=== PATIENT | female | born 1975 | race Caucasian/White ===

== ENCOUNTER 2018-10-21 15:38 | Emergency (ER) | payer MEDICAID ==
[~2018-10-21] VITALS: Ht 154.9 cm; Wt 100.0 kg
[~2018-10-21 15:38] MED LIST: ALBU8.5H8 IH; AMLO10TA4 PO; AMLO5TAB16 PO; ASPI-1265 PO; ATOR20TA66 PO; CLON-529 PO; CLOP75TA35 PO; FLO110IN INH; GUAI600T45 PO; HYDR-4069 PO; HYDR-4070 PO; METF1000 PO; METO-395 PO; METO25TA6 PO
[2018-10-21 15:52] VITALS: BP 209/128
== END 2018-10-21 18:25 | disposition home or self-care (01) ==
LOC: ER 15:39
DX: S00.83XA Contusion of other part of head, initial encounter (principal); I10 Essential (primary) hypertension; I25.10 Atherosclerotic heart disease of native coronary artery without angina pectoris; E78.00 Pure hypercholesterolemia, unspecified; I25.2 Old myocardial infarction; J44.9 Chronic obstructive pulmonary disease, unspecified; E11.9 Type 2 diabetes mellitus without complications; F12.90 Cannabis use, unspecified, uncomplicated; F15.90 Other stimulant use, unspecified, uncomplicated; Z79.82 Long term (current) use of aspirin; Z98.890 Other specified postprocedural states; Z79.899 Other long term (current) drug therapy; W18.39XA Other fall on same level, initial encounter; Y93.89 Activity, other specified; Y92.89 Other specified places as the place of occurrence of the external cause; Y99.8 Other external cause status
CPT/HCPCS: 70450; 99284

== ENCOUNTER 2018-12-21 15:39 | Emergency (ER) | payer MEDICAID ==
[~2018-12-21] VITALS: Ht 154.9 cm; Wt 106.0 kg
[2018-12-21 16:22] VITALS: BP 170/115
[2018-12-21] MEDS ORDERED: diphenhydrAMINE 25mg capsule PO ONE (17:05)
[2018-12-21] MEDS ORDERED: PERM60CR19 TP (17:06)
[2018-12-21] MEDS ORDERED: HYDR28CR14 TOP (17:06)
== END 2018-12-21 17:26 | disposition home or self-care (01) ==
LOC: ER 15:40
DX: L23.9 Allergic contact dermatitis, unspecified cause (principal); I25.10 Atherosclerotic heart disease of native coronary artery without angina pectoris; E78.00 Pure hypercholesterolemia, unspecified; I10 Essential (primary) hypertension; I25.2 Old myocardial infarction; J44.9 Chronic obstructive pulmonary disease, unspecified; E11.9 Type 2 diabetes mellitus without complications; F12.90 Cannabis use, unspecified, uncomplicated; F15.90 Other stimulant use, unspecified, uncomplicated; Z20.7 Contact with and (suspected) exposure to pediculosis, acariasis and other infestations; Z98.890 Other specified postprocedural states; Z79.82 Long term (current) use of aspirin; Z79.84 Long term (current) use of oral hypoglycemic drugs; Z79.899 Other long term (current) drug therapy
CPT/HCPCS: 99283; Q0163

== ENCOUNTER 2024-06-10 11:56 | Emergency (ER) | payer MEDICAID ==
[~2024-06-10] VITALS: Ht 157.5 cm; Wt 104.8 kg
[~2024-06-10 11:56] MED LIST changes: +ALBU8.5H17 IH; -ALBU8.5H8 IH; +CLOP75TA34 PO; -CLOP75TA35 PO; -HYDR-4069 PO; -HYDR-4070 PO; +HYDR25TA90 PO; +HYDR28CR14 TOP; +HYDR50TA46 PO; +LOP25T PO; -METO25TA6 PO
[2024-06-10 13:11] LABS: BASOPHILS # (AUTO) 0.1 X10'3 (0-0.2); EOSINOPHILS # (AUTO) 0.3 X10'3 (0-0.9); EOSINOPHILS % (AUTO) 2.7 % (0-6); HEMATOCRIT 47.7 % (35.0-45.0); HEMOGLOBIN 15.8 g/dl (12.0-16.0); LYMPHOCYTES # (AUTO) 1.9 X10'3 (1.1-4.8); LYMPHOCYTES % (AUTO) 15.9 % (21-51); MEAN CORPUSCULAR HEMOGLOBIN 27.6 PG (27.0-31.0); MEAN CORPUSCULAR HGB CONC 33.1 g/dL (33.0-36.5); MEAN CORPUSCULAR VOLUME 83.4 FL (78-98); MONOCYTES # (AUTO) 0.7 X10'3 (0-0.9); MONOCYTES % (AUTO) 5.9 % (2-12); NEUTROPHILS # (AUTO) 9.1 X10'3 (1.8-7.7); NEUTROPHILS % (AUTO) 74.5 % (42-75); PLATELET COUNT 417 X10'3 (140-440); RED BLOOD COUNT 5.72 X10'6 (4.20-5.60); RED CELL DISTRIBUTION WIDTH 14.9 % (11.5-14.5); WHITE BLOOD COUNT 12.2 X10'3 (4.5-11.0)
[2024-06-10 13:42] LABS: ALANINE AMINOTRANSFERASE 21 U/L (12-78); ALBUMIN 2.9 G/DL (3.4-5.0); ALBUMIN/GLOBULIN RATIO 0.6 (1.1-1.5); ALKALINE PHOSPHATASE 116 IU/L (46-116); ANION GAP 10 (8-16); ASPARTATE AMINO TRANSFERASE 7 U/L (10-37); BILIRUBIN,TOTAL 0.3 MG/DL (0.1-1.0); BLOOD UREA NITROGEN 32 MG/DL (7-18); BUN/CREATININE RATIO 16.4 (10.0-20.0); CALCIUM 8.9 MG/DL (8.5-10.1); CHLORIDE 101 MMOL/L (99-107); CREATININE 1.95 MG/DL (0.40-0.90); GLUCOSE 288 MG/DL (70-104); POTASSIUM 4.8 MMOL/L (3.5-5.1); SODIUM 135 MMOL/L (135-145); TOTAL CARBON DIOXIDE 24.1 MMOL/L (24-32); TOTAL PROTEIN 8.1 G/DL (6.4-8.2); eCRCL 28 ML/MIN; eGFR 27 ML/MIN
[2024-06-10 13:55] LABS: PRO BRAIN NATRIURETIC PEPTIDE 2377 PG/ML (0-125)
[2024-06-10 14:16] LABS: LIPASE > 375 U/L (16-77)
[2024-06-10 14:24] LABS: BILIRUBIN,URINE NEGATIVE (Neg); CLARITY,URINE SLIGHTLY CLOUDY (Clear); COLOR,URINE YELLOW (Yellow); GLUCOSE, URINE 250 mg/dl (Neg); KETONES,URINE NEGATIVE (Neg); LEUKOCYTE ESTERASE ,URINE NEGATIVE (Neg); NITRITES, URINE NEGATIVE (Neg); OCCULT BLOOD,URINE TRACE-INTACT (Neg); PROTEIN,URINE >=300 mg/dl (Neg); UROBILINOGEN,URINE 0.2 E.U/dL (0.2-1.0)
[2024-06-10 14:26] LABS: URINE HCG NEGATIVE (NEG)
[2024-06-10] MEDS: cloNIDine 0.1 mg tablet PO ONE ×2 (14:27→17:30)
[2024-06-10 14:29] LABS: UA COLLECTION TYPE CLN CATCH MIDSTREAM
[2024-06-10 14:31] LABS: BACTERIA,URINE 1+ /HPF (Neg); FINE GRANULAR CAST 0-3 /LPF (NEGATIVE); HYALINE CASTS 0-3 /LPF (NEGATIVE); RBC,URINE 0-2 /HPF (0-2); SQUAMOUS EPITHELIAL CELL,UR MODERATE /LPF (FEW); WBC,URINE 20-30 /HPF (0-4)
[2024-06-10 14:32] LABS: WBC CLUMPS,URINE FEW /HPF (NEGATIVE)
[2024-06-10] MEDS ORDERED: CEPH-585 PO (16:36)
[2024-06-10] MEDS ORDERED: METF-438 PO (16:45)
[2024-06-10] MEDS ORDERED: LOSA-418 PO (16:45)
[2024-06-10] MEDS: cephalexin 250mg capsule PO ONE (17:30)
[2024-06-10 17:32] VITALS: PULSE 83
[2024-06-10] MEDS: losartan 50mg tablet PO ONE (17:32)
[2024-06-10 17:37] VITALS: BP 191/113; RESP 17; TEMP 97.9; O2SAT 94
== END 2024-06-10 17:44 | disposition home or self-care (01) ==
LOC: ER 11:57
DX: I16.0 Hypertensive urgency (principal); N39.0 Urinary tract infection, site not specified; Z91.199 Patient's noncompliance with other medical treatment and regimen due to unspecified reason; E11.9 Type 2 diabetes mellitus without complications; E78.00 Pure hypercholesterolemia, unspecified; I10 Essential (primary) hypertension; I25.10 Atherosclerotic heart disease of native coronary artery without angina pectoris; J44.9 Chronic obstructive pulmonary disease, unspecified; F12.90 Cannabis use, unspecified, uncomplicated; F15.90 Other stimulant use, unspecified, uncomplicated; Z79.82 Long term (current) use of aspirin
CPT/HCPCS: 36415; 71045; 76700; 80053; 81001; 81025; 83690; 83880; 84484; 85025; 87088; 93005; 99285

== ENCOUNTER 2024-09-02 11:42 | Inpatient (IN) | payer MEDICAID ==
[~2024-09-02] VITALS: Ht 154.9 cm; Wt 110.1 kg
[~2024-09-02 11:42] MED LIST changes: +AMLO-912 PO; -AMLO10TA4 PO; +CEPH-585 PO; +LOSA-418 PO; +METF-438 PO
[2024-09-02 12:39] LABS: ALANINE AMINOTRANSFERASE 14 U/L (12-78); ALBUMIN 2.8 G/DL (3.4-5.0); ALBUMIN/GLOBULIN RATIO 0.5 (1.1-1.5); ALKALINE PHOSPHATASE 127 IU/L (46-116); ANION GAP 7 (8-16); ASPARTATE AMINO TRANSFERASE 15 U/L (10-37); BILIRUBIN,TOTAL 0.3 MG/DL (0.1-1.0); BLOOD UREA NITROGEN 37 MG/DL (7-18); BUN/CREATININE RATIO 18.4 (10.0-20.0); CALCIUM 8.9 MG/DL (8.5-10.1); CHLORIDE 103 MMOL/L (99-107); CREATININE 2.01 MG/DL (0.40-0.90); GLUCOSE 254 MG/DL (70-104); SODIUM 134 MMOL/L (135-145); TOTAL CARBON DIOXIDE 23.6 MMOL/L (24-32); TOTAL PROTEIN 8.1 G/DL (6.4-8.2); eCRCL 26 ML/MIN; eGFR 26 ML/MIN
[2024-09-02 12:47] LABS: POTASSIUM 4.7 MMOL/L (3.5-5.1); PRO BRAIN NATRIURETIC PEPTIDE 2041 PG/ML (0-125)
[2024-09-02] MEDS: hydrALAZINE 20mg/ml inj. IV ONE (12:49)
[2024-09-02 13:18] LABS: BASOPHILS # (AUTO) 0.2 X10'3 (0-0.2); BASOPHILS % (AUTO) 1.4 % (0-1); EOSINOPHILS # (AUTO) 0.4 X10'3 (0-0.9); EOSINOPHILS % (AUTO) 3.2 % (0-6); HEMATOCRIT 44.4 % (35.0-45.0); HEMOGLOBIN 14.5 g/dl (12.0-16.0); LYMPHOCYTES # (AUTO) 2.3 X10'3 (1.1-4.8); MEAN CORPUSCULAR HEMOGLOBIN 27.8 PG (27.0-31.0); MEAN CORPUSCULAR HGB CONC 32.6 g/dL (33.0-36.5); MEAN CORPUSCULAR VOLUME 85.2 FL (78-98); MEAN PLATELET VOLUME 6.9 FL (7.4-10.4); MONOCYTES % (AUTO) 7.4 % (2-12); NEUTROPHILS # (AUTO) 9.6 X10'3 (1.8-7.7); PLATELET COUNT 427 X10'3 (140-440); RED BLOOD COUNT 5.22 X10'6 (4.20-5.60); RED CELL DISTRIBUTION WIDTH 14.3 % (11.5-14.5); WHITE BLOOD COUNT 13.5 X10'3 (4.5-11.0)
[2024-09-02] MEDS: nitroGLYCERIN-Tridil 50MG/D5W 250 ML IV SCH (13:20)
[2024-09-02] MEDS ORDERED: magnesium sulf-water 4G/100mL 100 ML IV PRN (13:35)
[2024-09-02] MEDS ORDERED: magnesium sulf-water 2g/50mL 50 ML IV PRN (13:35)
[2024-09-02] MEDS ORDERED: potassium Cl 20 mEq SR tablet PO PRN ×2 (13:35)
[2024-09-02] MEDS ORDERED: potassium Cl 40MEQ/1/2NS 520ml 520 ML IV PRN (13:35)
[2024-09-02] MEDS ORDERED: ondansetron/PF 4mg/2ml inj IV PRN (13:35)
[2024-09-02] MEDS ORDERED: HYDROcodone/acetaminophen 5mg/325mg tablet PO PRN (13:35)
[2024-09-02] MEDS ORDERED: magnesium Cl slow-release 64mg tablet PO PRN (13:35)
[2024-09-02] MEDS ORDERED: acetaminophen 325mg tablet PO PRN (13:35)
[2024-09-02] MEDS ORDERED: morphine 2 MG/ML inj. syringe IV PRN (13:35)
[2024-09-02] MEDS: aspirin 325mg tablet, delayed-release (Ecotrin) PO ONE (14:07)
[2024-09-02] MEDS: normal saline 1000ml 1,000 ML IV SCH (14:07)
[2024-09-02] MEDS: niCARDipine-NS 40mg/200ml IVPB 200 ML IV SCH (14:08)
[2024-09-02] MEDS: labetalol 20mg/4ml (5mg/ml) syringe IV ONE (14:09)
[2024-09-02 16:02] LABS: URINE AMPHETAMINE SCREEN NEGATIVE (Neg); URINE BARBITUATE SCREEN NEGATIVE (Neg); URINE BENZODIAZEPINES SCREEN NEGATIVE (Neg); URINE COCAINE SCREEN NEGATIVE (Neg); URINE METHADONE SCREEN NEGATIVE (Neg)
[2024-09-02 16:03] LABS: URINE CANNABINOID SCREEN POSITIVE (Neg); URINE OPIATE SCREEN NEGATIVE (Neg); URINE PHENCYCLIDINE SCREEN NEGATIVE (Neg)
[2024-09-02] MEDS: acetaminophen 325mg tablet PO PRN (16:54)
[2024-09-02] MEDS: hyDRALAzine 10mg tablet PO SCH (17:20)
[2024-09-02] MEDS: losartan 50mg tablet PO SCH (17:20)
[2024-09-02 20:30] VITALS: BP 153/111; PULSE 89; RESP 20; TEMP 97.1; O2SAT 95
[2024-09-02] MEDS ORDERED: DEXTROSE 15 GM of carb/4 tabs (each vial/BOTTLE has 4 tablets) PO PRN ×2 (21:05)
[2024-09-02] MEDS ORDERED: dextrose 50%-water 50ml dispensing syringe IV PRN ×2 (21:05)
[2024-09-02] MEDS ORDERED: glucagon, human recombinant 1mg kit SUBCUT PRN (21:05)
[2024-09-02 21:29] LABS: HEMOGLOBIN A1C 9.2 % (4.5-6.2)
[2024-09-02 22:00] VITALS: BP 147/93; PULSE 91; RESP 19; TEMP 97; O2SAT 94
[2024-09-02] MEDS: heparin, porcine 5000 units/ml vial SQ SCH (23:02)
[2024-09-02] MEDS: INSULIN LISPRO 100 UNIT/ML INSULN.PEN MULTI-DOSE SQ SCH (23:07)
[2024-09-02] MEDS: insulin glargine (Lantus) pen - multi-dose SQ SCH (23:08)
[2024-09-02] MEDS: insulin Lispro (HumaLOG) vial - multi-dose SQ ONE (23:23)
[2024-09-02] MEDS: insulin glargine (Lantus) pen - multi-dose SQ ONE (23:24)
[2024-09-03] VITALS (8 sets, daily range): BP systolic 143–180; BP diastolic 83–115; PULSE 82–94; RESP 11–20; TEMP 97.2–98.6; O2SAT 92–97
[2024-09-03 06:39] LABS: BASOPHILS # (AUTO) 0.1 X10'3 (0-0.2); BASOPHILS % (AUTO) 1.1 % (0-1); EOSINOPHILS # (AUTO) 0.4 X10'3 (0-0.9); EOSINOPHILS % (AUTO) 3.2 % (0-6); HEMOGLOBIN 13.9 g/dl (12.0-16.0); LYMPHOCYTES # (AUTO) 1.9 X10'3 (1.1-4.8); LYMPHOCYTES % (AUTO) 14.1 % (21-51); MEAN CORPUSCULAR HEMOGLOBIN 27.8 PG (27.0-31.0); MEAN CORPUSCULAR HGB CONC 33.1 g/dL (33.0-36.5); MEAN CORPUSCULAR VOLUME 84.1 FL (78-98); MEAN PLATELET VOLUME 6.8 FL (7.4-10.4); MONOCYTES # (AUTO) 1.1 X10'3 (0-0.9); MONOCYTES % (AUTO) 7.9 % (2-12); NEUTROPHILS # (AUTO) 9.8 X10'3 (1.8-7.7); NEUTROPHILS % (AUTO) 73.7 % (42-75); PLATELET COUNT 388 X10'3 (140-440); RED CELL DISTRIBUTION WIDTH 14.3 % (11.5-14.5); WHITE BLOOD COUNT 13.3 X10'3 (4.5-11.0)
[2024-09-03 07:00] LABS: ALANINE AMINOTRANSFERASE 12 U/L (12-78); ALBUMIN 2.6 G/DL (3.4-5.0); ALBUMIN/GLOBULIN RATIO 0.5 (1.1-1.5); ALKALINE PHOSPHATASE 116 IU/L (46-116); ANION GAP 11 (8-16); BILIRUBIN,TOTAL 0.3 MG/DL (0.1-1.0); BLOOD UREA NITROGEN 34 MG/DL (7-18); BUN/CREATININE RATIO 18.9 (10.0-20.0); CALCIUM 8.7 MG/DL (8.5-10.1); CHLORIDE 102 MMOL/L (99-107); GLUCOSE 274 MG/DL (70-104); POTASSIUM 4.2 MMOL/L (3.5-5.1); SODIUM 133 MMOL/L (135-145); TOTAL PROTEIN 7.4 G/DL (6.4-8.2); eCRCL 29 ML/MIN; eGFR 30 ML/MIN
[2024-09-03] MEDS ORDERED: INSULIN LISPRO 100 UNIT/ML INSULN.PEN MULTI-DOSE SQ SCH (07:00)
[2024-09-03 07:24] LABS: ASPARTATE AMINO TRANSFERASE 6 U/L (10-37)
[2024-09-03] MEDS: labetalol 100mg tablet PO SCH (10:05)
[2024-09-03] MEDS ORDERED: GABA-1405 PO (14:33)
[2024-09-03] MEDS ORDERED: CARSR60C PO (14:33)
[2024-09-03] MEDS ORDERED: ROSU40TA89 PO (14:33)
[2024-09-03] MEDS ORDERED: SPIR50TA5 PO (14:33)
[2024-09-03] MEDS ORDERED: insulin glargine (Lantus) pen - multi-dose SQ SCH (21:00)
[2024-09-03] MEDS: amLODIPine 5mg tablet PO SCH (22:45)
[2024-09-04 02:00] VITALS: BP 116/77; PULSE 75; RESP 16; TEMP 97.6; O2SAT 94
[2024-09-04 06:40] LABS: BASOPHILS # (AUTO) 0.1 X10'3 (0-0.2); BASOPHILS % (AUTO) 1.3 % (0-1); EOSINOPHILS # (AUTO) 0.3 X10'3 (0-0.9); EOSINOPHILS % (AUTO) 2.6 % (0-6); HEMATOCRIT 41.6 % (35.0-45.0); HEMOGLOBIN 13.5 g/dl (12.0-16.0); LYMPHOCYTES # (AUTO) 2.1 X10'3 (1.1-4.8); LYMPHOCYTES % (AUTO) 18.2 % (21-51); MEAN CORPUSCULAR HEMOGLOBIN 27.6 PG (27.0-31.0); MEAN CORPUSCULAR HGB CONC 32.4 g/dL (33.0-36.5); MEAN CORPUSCULAR VOLUME 85.4 FL (78-98); MONOCYTES % (AUTO) 8.4 % (2-12); NEUTROPHILS # (AUTO) 8.2 X10'3 (1.8-7.7); NEUTROPHILS % (AUTO) 69.5 % (42-75); PLATELET COUNT 370 X10'3 (140-440); RED BLOOD COUNT 4.87 X10'6 (4.20-5.60); RED CELL DISTRIBUTION WIDTH 14.5 % (11.5-14.5); WHITE BLOOD COUNT 11.8 X10'3 (4.5-11.0)
[2024-09-04 06:59] LABS: ALANINE AMINOTRANSFERASE 15 U/L (12-78); ALBUMIN 2.4 G/DL (3.4-5.0); ALBUMIN/GLOBULIN RATIO 0.6 (1.1-1.5); ALKALINE PHOSPHATASE 100 IU/L (46-116); ANION GAP 8 (8-16); ASPARTATE AMINO TRANSFERASE 12 U/L (10-37); BILIRUBIN,TOTAL 0.4 MG/DL (0.1-1.0); BLOOD UREA NITROGEN 29 MG/DL (7-18); CALCIUM 8.4 MG/DL (8.5-10.1); CHLORIDE 104 MMOL/L (99-107); CREATININE 1.71 MG/DL (0.40-0.90); GLUCOSE 202 MG/DL (70-104); POTASSIUM 4.3 MMOL/L (3.5-5.1); SODIUM 135 MMOL/L (135-145); TOTAL CARBON DIOXIDE 23.2 MMOL/L (24-32); TOTAL PROTEIN 6.7 G/DL (6.4-8.2); eCRCL 30 ML/MIN; eGFR 32 ML/MIN
[2024-09-04 08:00] VITALS: BP 142/85; PULSE 81; RESP 14; TEMP 97.1; O2SAT 97
[2024-09-04 12:00] VITALS: BP 144/76; PULSE 73; RESP 18; TEMP 97.3; O2SAT 95
[2024-09-04] MEDS ORDERED: hyDRALAzine tablet PO (13:35)
[2024-09-04] MEDS ORDERED: LOSA50TA64 PO (13:35)
[2024-09-04] MEDS ORDERED: NOR5T PO (13:35)
[2024-09-04] MEDS ORDERED: ROSU40TA89 PO (13:35)
[2024-09-04] MEDS ORDERED: CARSR60C PO (13:35)
[2024-09-04] MEDS ORDERED: LABE100T8 PO (13:35)
[2024-09-04 16:05] VITALS: BP 172/77; PULSE 78; RESP 18; TEMP 97.3; O2SAT 95
== END 2024-09-04 16:20 | disposition home or self-care (01) | DRG 199 ==
LOC: ER 11:42 → ED HOLD 13:36 → PCU 3S 20:15
PROVIDERS: ADMIT Internal Medicine; ATTEND Internal Medicine
DX: I16.0 Hypertensive urgency (principal); N17.9 Acute kidney failure, unspecified; E11.22 Type 2 diabetes mellitus with diabetic chronic kidney disease; D72.829 Elevated white blood cell count, unspecified; I12.9 Hypertensive chronic kidney disease with stage 1 through stage 4 chronic kidney disease, or unspecified chronic kidney disease; E78.00 Pure hypercholesterolemia, unspecified; N18.30 Chronic kidney disease, stage 3 unspecified; I25.10 Atherosclerotic heart disease of native coronary artery without angina pectoris; J44.89 Other specified chronic obstructive pulmonary disease; I25.2 Old myocardial infarction; Z79.84 Long term (current) use of oral hypoglycemic drugs; Z79.899 Other long term (current) drug therapy; Z82.49 Family history of ischemic heart disease and other diseases of the circulatory system; Z82.5 Family history of asthma and other chronic lower respiratory diseases; Z83.3 Family history of diabetes mellitus; Z91.148 Patient's other noncompliance with medication regimen for other reason; Z98.891 History of uterine scar from previous surgery
CPT/HCPCS: 36415; 71045; 80053; 80305; 82948; 83036; 83880; 84484; 85025; 87081; 93005; 93306; 96361; 96374; 96375; 99285; A6258; G0378; J0360; J1644; J1815; J3490; J7030

== ENCOUNTER 2024-09-20 02:12 | Emergency (ER) | payer MEDICAID ==
[~2024-09-20] VITALS: Ht 157.5 cm; Wt 113.8 kg
[~2024-09-20 02:12] MED LIST changes: -AMLO-912 PO; -AMLO5TAB16 PO; -ASPI-1265 PO; -ATOR20TA66 PO; +CARSR60C PO; -CEPH-585 PO; -CLON-529 PO; -CLOP75TA34 PO; -FLO110IN INH; +GABA-1405 PO; -GUAI600T45 PO; -HYDR25TA90 PO; -HYDR28CR14 TOP; -HYDR50TA46 PO; +LABE100T8 PO; -LOP25T PO; -LOSA-418 PO; +LOSA50TA64 PO; -METO-395 PO; +NOR5T PO; +ROSU40TA89 PO; +hyDRALAzine tablet PO
[2024-09-20 02:20] VITALS: BP 169/84; PULSE 79; TEMP 98.3; O2SAT 97
[2024-09-20 02:42] LABS: URINE HCG NEGATIVE (NEG)
[2024-09-20 02:48] LABS: BASOPHILS # (AUTO) 0.1 X10'3 (0-0.2); BASOPHILS % (AUTO) 0.8 % (0-1); EOSINOPHILS # (AUTO) 0.4 X10'3 (0-0.9); EOSINOPHILS % (AUTO) 2.7 % (0-6); HEMATOCRIT 36.7 % (35.0-45.0); HEMOGLOBIN 12.2 g/dl (12.0-16.0); LYMPHOCYTES # (AUTO) 1.9 X10'3 (1.1-4.8); LYMPHOCYTES % (AUTO) 13.4 % (21-51); MEAN CORPUSCULAR HEMOGLOBIN 27.4 PG (27.0-31.0); MEAN CORPUSCULAR HGB CONC 33.2 g/dL (33.0-36.5); MEAN CORPUSCULAR VOLUME 82.6 FL (78-98); MEAN PLATELET VOLUME 6.9 FL (7.4-10.4); MONOCYTES # (AUTO) 1.2 X10'3 (0-0.9); MONOCYTES % (AUTO) 8.2 % (2-12); NEUTROPHILS # (AUTO) 10.6 X10'3 (1.8-7.7); NEUTROPHILS % (AUTO) 74.9 % (42-75); PLATELET COUNT 363 X10'3 (140-440); RED BLOOD COUNT 4.44 X10'6 (4.20-5.60); RED CELL DISTRIBUTION WIDTH 13.7 % (11.5-14.5); WHITE BLOOD COUNT 14.1 X10'3 (4.5-11.0)
[2024-09-20 02:58] LABS: ALANINE AMINOTRANSFERASE 13 U/L (12-78); ALBUMIN/GLOBULIN RATIO 0.7 (1.1-1.5); ALKALINE PHOSPHATASE 108 IU/L (46-116); ANION GAP 10 (8-16); ASPARTATE AMINO TRANSFERASE 10 U/L (10-37); BILIRUBIN,TOTAL 0.3 MG/DL (0.1-1.0); BLOOD UREA NITROGEN 45 MG/DL (7-18); CALCIUM 8.1 MG/DL (8.5-10.1); CHLORIDE 105 MMOL/L (99-107); GLUCOSE 217 MG/DL (70-104); LIPASE 50 U/L (16-77); POTASSIUM 4.8 MMOL/L (3.5-5.1); SODIUM 138 MMOL/L (135-145); TOTAL CARBON DIOXIDE 22.8 MMOL/L (24-32); TOTAL PROTEIN 7.6 G/DL (6.4-8.2); eCRCL 22 ML/MIN; eGFR 21 ML/MIN
[2024-09-20 03:00] LABS: BILIRUBIN,URINE NEGATIVE (Neg); CLARITY,URINE CLEAR (Clear); COLOR,URINE YELLOW (Yellow); GLUCOSE, URINE 250 mg/dl (Neg); KETONES,URINE NEGATIVE (Neg); LEUKOCYTE ESTERASE ,URINE TRACE (Neg); OCCULT BLOOD,URINE TRACE-INTACT (Neg); PROTEIN,URINE 100 mg/dl (Neg); UROBILINOGEN,URINE 0.2 E.U/dL (0.2-1.0)
[2024-09-20 03:09] LABS: UA COLLECTION TYPE CLN CATCH MIDSTREAM
[2024-09-20 03:10] LABS: NITRITES, URINE NEGATIVE (Neg)
[2024-09-20 03:11] LABS: BACTERIA,URINE 2+ /HPF (Neg); RBC,URINE 0-2 /HPF (0-2); SQUAMOUS EPITHELIAL CELL,UR FEW /LPF (FEW)
[2024-09-20] MEDS: HYDROcodone/acetaminophen 5mg/325mg tablet PO ONE (03:22)
[2024-09-20] MEDS: ondansetron 4mg rapidly disintigrating tab PO ONE (03:23)
[2024-09-20] MEDS: proCHLORperazine 10 MG/2 ml inj IV ONE (04:26)
[2024-09-20] MEDS: proCHLORperazine 10 MG/2 ml inj IM ONE (04:27)
[2024-09-20] MEDS ORDERED: HYDR-3965 PO (04:32)
[2024-09-20] MEDS ORDERED: ONDA-245 PO (04:32)
[2024-09-20 04:40] VITALS: RESP 14
[2024-09-20] MEDS: HYDROcodone/acetaminophen 10/325mg tab PO ONE (04:40)
== END 2024-09-20 04:52 | disposition home or self-care (01) ==
LOC: ER 02:12
DX: M54.50 Low back pain, unspecified (principal); R11.2 Nausea with vomiting, unspecified; E11.9 Type 2 diabetes mellitus without complications; E78.00 Pure hypercholesterolemia, unspecified; I10 Essential (primary) hypertension; I25.10 Atherosclerotic heart disease of native coronary artery without angina pectoris; J44.9 Chronic obstructive pulmonary disease, unspecified
CPT/HCPCS: 36415; 74176; 80053; 81001; 81025; 83690; 85025; 87088; 96372; 99285; J0780

== ENCOUNTER 2025-01-08 18:46 | Inpatient (IN) | payer MEDICAID ==
[~2025-01-08] VITALS: Ht 154.9 cm; Wt 109.5 kg
[2025-01-08 10:58] VITALS: BP 157/103; PULSE 78; RESP 20; TEMP 98.2; O2SAT 92
--- NOTE | 2025-01-08 19:01 | ELECTROCARDIOGRAPH REPORT ---
[facility] Test Date: 2025-01-08 Test Time: 18:53:31 Pat Name: SIM BISHOP Department: EMERGENCY ROOM Room: Gender: F Return To Vendor: MELITA : 1975 Requested By: DEVAN CARDENAS Order Number: [id number] Reading MD: Measurements Intervals [place] Rate: 83 P: 12 OR: 178 QRS: 55 QRSD: 99 T: 116 QT: 404 QTc: 475 Interpretive Statements Sinus rhythm Abnormal T, consider ischemia, lateral leads Please click the below link to view image of tracing.
[2025-01-08] MEDS ORDERED: heparin 25,000 UNIT/250ml bag 250 ML IV PRN (19:10)
--- NOTE | 2025-01-08 19:27 | Physician Documentation ---
History of Present Illness ~ Chief Complaint: Shortness of Breath Stated Complaint: NSTEMI/CHF Time Seen by MD: 18:56 Primary Medical Doctor: Hali Marques HPI 49 year old female sent from [facility] for NSTEMI. She has a history of CAD, diabetes, COPD, and presented there for breathing difficulties. She was noted there to have serial troponins approximately 500 but not trending up, as well as hypertensive urgency and acute kidney injury. Heparin and nitroglycerin drips were started. On arrival she was on CPAP per the transport team but speaking full sentences and no complaints. Medication Reconciliation Allergies: Coded Allergies: No Known Allergies (Unverified , 01/08/25) Scheduled Amlodipine Besylate (Amlodipine Besylate), 10 MG PO DAILY Diltiazem Hcl SR* (Cardizem SR*), 1 CAPSULE PO Q12H Gabapentin (Gabapentin), 1 TAB PO Q8H, (Reported) Labetalol Hcl (Labetalol Hcl), 200 MG PO BID Losartan Potassium (Losartan Potassium), 50 MG PO DAILY Metformin HCl (Metformin HCl), 1 TAB PO Q12H Metformin Hcl* (Glucophage*), 1 TAB PO DAILY Rosuvastatin Calcium (Rosuvastatin Calcium), 1 TAB PO DAILY [hyDRALAzine tablet], 20 MG PO Q8H Scheduled PRN Albuterol Sulfate (Proair Hfa), 2 PUFFS IH Q4H PRN for SOB or wheezing Past Medical History Past Medical History: Coronary Artery Disease, High Cholesterol, Hypertension, Myocardial Infarction, Asthma, COPD, Diabetes Past Surgical History: Patient History: (DM Type 2) Diabetes mellitus type 2 FATHER brother Asthma brother FH: hypertension FATHER FATHER Alcohol Use: None Drug Use: marijuana, methamphetamine Lives with: Family Lives In: Home Occupation: employed Review of Systems All Other Systems at this time: Reviewed and Negative Physical Exam Vital Signs: RN Vital Signs have been reviewed: Yes, Temperature: 98.3, Source: Oral, Heart Rate: 84, Respiratory Rate: 25, BP: 192/94, Pulse Oximetry: 100, Weight: 109.500 Oxygen Flow Rate: 5.0 Physical Exam HEENT: PERRL, moist oral mucosa, EOMI Pulmonary: No respiratory distress; faint expiratory wheezes Cardiac: RRR, no murmur, rub or gallop MSK: no deformity Skin: w/d/i, no rash Neuro: alert, nonfocal Psych: normal affect Progress Results/Orders Results/Orders Orders - DEVAN CARDENAS MD Monitor (01/08/25 18:59) Saline Lock (01/08/25 18:59) Oxygen (01/08/25 18:59) Cbc/Diff (01/08/25 18:59) BMP (01/08/25 18:59) PBNP (01/08/25 18:59) Hs Troponin I W Calculations (01/08/25 18:59) Hs Troponin I W Calculations (01/08/25 20:59) Hs Troponin I W Calculations (01/08/25 21:59) Page Hospitalist (01/08/25 ) Pt Inr (01/08/25 19:06) PTT (01/08/25 19:06) Heparin 10,000 Unit/Ml 1ml (Heparin 10,0 (01/08/25 19:10) Heparin 25,000 Unit/250ml Bag (Heparin 2 (01/08/25 19:19) Completed Orders - DEVAN CARDENAS MD Electrocardiogram (01/08/25 18:59) Heparin 25,000 Unit/250ml Bag (Heparin 2 (01/08/25 19:10) Labetalol Inj. (Trandate 20 Mg/4ml Syrin (01/08/25 19:10) Vital Signs 01/08/25 01/08/25 18:55 19:06 Temp 98.3 Pulse 82 84 Resp 15 25 B/P (MAP) 192/94 (126) Pulse Ox 98 100 O2 Flow Rate 5.0 EKG/XRAY/CT/US/VASC/MRI EKG : Indication: shortness of breath EKG Rate: 83 EKG: NSR, T wave inversion Additional Comment my interpretation: NSR, nonspecific T-wave inversion aVL, no STEMI criteria, no dysrhythmia Medical Decision Making Findings 49 year old female here as transfer for NSTEMI, COPD exacerbation, MISAEL, and possible PNA. continued heparin drip, transferred care to hospitalist. Differential Dx:Considerations: Include: COPD, hypertension, accelerated, hyponatremia, myocardial infarction, panic attack, pneumonia, pneumothorax, pulmonary embolism, respiratory distress, respiratory failure, upper resp. infection Departure Disposition: 09 ADMITTED INPATIENT Admitted to Inpatient Unit: to hospitalist Admission Level of Care: Med/Surg Impression: Primary Impression: NSTEMI (non-ST elevated myocardial infarction) Additional Impressions: Acute kidney injury COPD with acute exacerbation Condition: Stable Referrals: NO PRIMARY CARE PROVIDER (PCP) Education Educated: Patient Educated regarding: diagnosis, treatment, prognosis, need for follow up Signature Scribe Signature: . Attestation: . DEVAN CARDENAS MD Jan 08, 2025 19:27
[2025-01-08 19:39] LABS: MEAN PLATELET VOLUME 7.0 FL (7.4-10.4); RED CELL DISTRIBUTION WIDTH 14.6 % (11.5-14.5)
[2025-01-08] MEDS: heparin 25,000 UNIT/250ml bag 250 ML IV PRN (19:44)
[2025-01-08] MEDS ORDERED: mag hydrox/Alum hydrox/simeth 30ml oral suspension PO PRN (19:45)
[2025-01-08] MEDS: labetalol 20mg/4ml (5mg/ml) syringe IV ONE (19:45)
[2025-01-08] MEDS ORDERED: magnesium Cl slow-release 64mg tablet PO PRN (19:45)
[2025-01-08] MEDS: MESSAGE TO NURSING IV ONE ×2 (19:45→21:00)
[2025-01-08] MEDS ORDERED: potassium Cl 20 mEq SR tablet PO PRN ×2 (19:45)
[2025-01-08] MEDS ORDERED: magnesium sulf-water 4G/100mL 100 ML IV PRN (19:45)
[2025-01-08] MEDS ORDERED: magnesium hydroxide 30ml (MOM) UD suspension PO PRN (19:45)
[2025-01-08] MEDS ORDERED: potassium Cl 40MEQ/1/2NS 520ml 520 ML IV PRN (19:45)
[2025-01-08] MEDS ORDERED: magnesium sulf-water 2g/50mL 50 ML IV PRN (19:45)
[2025-01-08] MEDS ORDERED: ondansetron/PF 4mg/2ml inj IV PRN (19:45)
[2025-01-08] MEDS ORDERED: metoclopramide 5 mg/ml inj IV PRN (19:45)
[2025-01-08 19:46] LABS: APTT 33 SECONDS (22-32); INR 1.0 INR
[2025-01-08] MEDS ORDERED: dextrose 50%-water 50ml dispensing syringe IV PRN ×2 (19:55)
[2025-01-08] MEDS ORDERED: glucagon, human recombinant 1mg kit SUBCUT PRN (19:55)
[2025-01-08] MEDS ORDERED: DEXTROSE 15 GM of carb/4 tabs (each vial/BOTTLE has 4 tablets) PO PRN ×2 (19:55)
[2025-01-08 19:58] LABS: CREATININE 3.36 MG/DL (0.40-0.90); PRO BRAIN NATRIURETIC PEPTIDE 1605 PG/ML (0-125); TOTAL CARBON DIOXIDE 21.2 MMOL/L (24-32); eCRCL 15 ML/MIN; eGFR 15 ML/MIN
[2025-01-08] MEDS: K and/or MAG REPLACEMENT MC SCH (20:00)
[2025-01-08] MEDS: docusate sod 100mg capsule PO SCH (20:00)
--- NOTE | 2025-01-08 20:26 | HISTORY AND PHYSICAL-Residence ---
History & Physical Providers to CC Resident Creating Document: ALEXI CLANCY RES ~ History of Present Illness Primary Medical Doctor: Hali MCMAHAN Reason for Admit\Complaint: COPD exacerbation, type 2 [place] History of Present Illness This is a 49-year-old female patient with a past medical history of coronary artery disease, type 2 diabetes mellitus, hypertension, asthma/COPD overlap, transferred from [facility] for COPD exacerbation and elevated troponins. Two days ago the patient had shortness of breath, wheezing and increased sputum production, went to the local ER and was treated with albuterol and prednisone. Patient's symptoms worsened and she went back to the ER in [facility] this morning due to severe shortness of breath and chest tightness. She also had elevated troponins and was treated with aspirin and heparin drip. At presentation on [facility] her blood pressure was 200/100 mmHg and she was started on nitroglycerin drip which was discontinued in our ER. Patient denies chest pain, hemoptysis, palpitation, dizziness or lightheadedness. She was feeling nauseous but denies vomiting, abdominal pain or diarrhea. Allergies: Coded Allergies: No Known Allergies (Unverified , 01/08/25) Home Medications Home Medications Active Losartan Potassium 50 Mg Tablet 50 Mg PO DAILY 30 Days [hyDRALAzine tablet] 10 MG Tablet 20 Mg PO Q8H 30 Days Amlodipine Besylate 5 Mg Tablet 10 Mg PO DAILY 30 Days Labetalol Hcl 100 Mg Tablet 200 Mg PO BID 30 Days Rosuvastatin Calcium 40 Mg Tablet 1 Tab PO DAILY 30 Days Cardizem SR* (Diltiazem HCl) 60 Mg Cap.sr.12h 1 Capsule PO Q12H 30 Days Metformin HCl 1,000 Mg Tablet 1 Tab PO Q12H 30 Days Glucophage* (Metformin HCl) 1,000 Mg Tablet 1 Tab PO DAILY Proair Hfa (Albuterol Sulfate) 1 Puff Inh 2 Puffs IH Q4H PRN Reported Gabapentin 600 Mg Tablet 1 Tab PO Q8H 30 Days Past Medical History Past Medical History Coronary artery disease - STEMI in 2017, 2 stents placed COPD/asthma overlap Hypertension Type 2 diabetes mellitus complicated with peripheral neuropathy Metabolic syndrome Past Surgical History Surgical History Comment Two C-sections Family History Family History: (DM Type 2) Diabetes mellitus type 2 FATHER brother Asthma brother FH: hypertension FATHER FATHER Past Social History Social History Comment Patient quit smoking five months ago. She smoked one pack of cigarettes daily since she was 16-year-old. She smokes marijuana daily, denies alcohol or other illicit drug use. Smoking: Quit less than 1 year Alcohol Use: None Drug Use: Marijuana, Methamphetamine Lives with: Family Lives In: Home Occupation: unemployed ROS All Other Systems: Reviewed and Negative Constitutional: Reports: diaphoresis, malaise Eyes: Reports: no symptoms reported ENT: Reports: no symptoms reported Respiratory: Reports: see HPI, cough, shortness of breath, SOB with exertion, SOB at rest, wheezing Cardiovascular: Reports: no symptoms reported Gastrointestinal: Reports: nausea, vomiting Genitourinary: Reports: no symptoms reported Female Genitalia: Reports: no reported symptoms Neurological: Reports: no symptoms reported Musculoskeletal: Reports: no symptoms reported Integumentary: Reports: no symptoms reported Allergic/Immunologic: Reports: no symptoms reported Hematologic/Lymphatic: Reports: no symptoms reported Endocrine: Reports: no symptoms reported Psychiatric: Reports: no symptoms reported Exam Vitals: Vital Signs Date Time Temp Pulse Resp B/P (MAP) Pulse Ox O2 Delivery O2 Flow Rate FiO2 01/08/25 20:11 15 01/08/25 19:48 98.3 83 150/95 (113) 91 4.0 General: General: Awake and Alert, mild respiratory distress. HEENT: Conjunctiva pink, Sclera clear, Mucus Membranes moist. Neck: Supple without masses and tenderness. Resp: Mild respiratory distress. Use of accessory muscles. Diminished air movement bilaterally with diffuse wheezing. Heart: Regular Rate and rhythm, normal S1 and S2 without murmur, rub or gallop. Abdomen: Soft and non tender no organomegaly Extremities: No cyanosis,clubbing or edema. Skin: Warm and Dry. Diagnostic Data Last Recorded Lab Results: 01/08/25191701/08/[id number] Diagnostic Data: Laboratory Tests Test 01/08/25 19:18 Prothrombin Time 10.1 SECONDS (9.0-12.0) INR International Normalized Ratio 1.0 INR Activated Partial Thromboplast Time 33 SECONDS (22-32) H Coagulation Comments Advance Care Planning Advanced Care plannin - 30 Minutes (Patient wishes to be full code) Additional Plan Assessment This is a 49-year-old female patient with a past medical history of coronary artery disease, type 2 diabetes mellitus, hypertension, asthma/COPD overlap, admitted for pneumonia, COPD exacerbation and elevated troponins. Patient was started on Solu-Medrol, ceftriaxone plus azithromycin, albuterol and Atrovent. She was also started on aspirin, heparin drip and atorvastatin. Community-acquired pneumonia versus COPD exacerbation Acute hypoxemic respiratory failure Chest CT: Bandlike areas of consolidation in the upper lobes and lingula with associated atelectasis and bronchiectatic changes. Small ground-glass opacities in the medial lower lobes as well. Diffuse wheezing on physical exam WBC 11.8, C-reactive protein 1.04, procalcitonin 0.07, lactic acid 2.0 Started on ceftriaxone, azithromycin, methylprednisolone, albuterol and Atrovent Ordered blood culture NSTEMI versus type 2 [place] Troponin: 649 -> 557 -> 599 ([facility]) and 728 -> 729 -> 485 BNP 1605 EKG: sinus rhythm, ST depression in leads I, aVL, V4-V6 Continue heparin drip and aspirin Started on atorvastatin 80 mg, metoprolol succinate 50 mg Ordered echocardiogram Cardiology evaluation in a.m Uncontrolled type 2 diabetes mellitus complicated with peripheral neuropathy Metabolic syndrome A1c 9.9 Hold metformin Started on Lantus 15 units at bedtime Started on hyper/hypoglycemia protocol Acute kidney injury Creatinine 3.36 (baseline 2.5) Pending urinalysis and urine lytes for MISAEL etiology evaluation Mixed hyperlipidemia Cholesterol 236, LDL 103, HDL 35, triglycerides 671 Started on atorvastatin 80 mg Uncontrolled hypertension Losartan held due to MISAEL Continue amlodipine 10 mg daily Started on metoprolol 50 mg daily Hydralazine 10 mg IV q.6 p.r.n. Code Status: Full code DVT prophylaxis: Heparin drip Analgesia/sedation: Morphine/[place] Line/tube: PIV GI prophylaxis: None Nutrition: NPO after midnight Prognosis: Guarded Disposition: Continue medical treatment. Cardiology evaluation in a.m. Date of Service: Jan 08, 2025 Billing Provider: PAGE ALEXANDER MD, LUCAS, RES Jan 08, 2025 20:26
--- NOTE | 2025-01-08 20:35 | RADIOLOGY REPORT ---
CT SCAN CHEST WITHOUT CONTRAST CLINICAL HISTORY: persistent SOB, type 2 NE TECHNIQUE: Helical axial scans are obtained from the thoracic inlet to the upper abdomen without intr avenous contrast injection. Coronal and sagittal reformatted images were generated from thin-section reconstructions. One or more of the following radiation dose reduction techniques were used for this examination: automated exposure control, adjustment of the mA and/or kV according to patient size, us e of iterative reconstruction technique. COMPARISON: None FINDINGS: Evaluation of vascular and other mediastinal structures is limited due to lack of contrast administra tion. Mediastinum: The heart is mildly enlarged. Coronary artery calcifications noted. Trace pericardial f luid. Scattered borderline enlarged mediastinal lymph nodes which may be reactive. Lung parenchyma: Bandlike areas of consolidation in the upper lobes and lingula with associated atele ctasis and bronchiectatic changes. Small ground-glass opacities in the medial lower lobes as well. Pleura: No sizable pleural effusions or pneumothorax. Chest wall/axillae: No axillary lymphadenopathy is noted. Upper Abdomen: No acute findings as visualized. IMPRESSION: Pulmonary findings, as above, may be sequelae of atypical infection / inflammation. Recommend follow -up to resolution. Coronary artery disease with mild cardiomegaly and trace pericardial effusion.
[2025-01-08] MEDS: azithromycin/NS 500mg/250ml 250 ML IV ONE (20:45)
[2025-01-08 20:52] LABS: ABG BASE EXCESS -6.3 mmol/L (-2.0-3.0); ABG HCO3 18.9 mmol/L (21.0-28.0); ABG OXYGEN SATURATION 88.2 % (94.0-98.0); ABG PCO2 (T) 36.2 mmHg (32.0-45.0); ABG PH (T) 7.335 (7.350-7.450); ABG PO2 (T) 56.2 mmHg (83.0-108.0); ALLEN'S TEST Modified; FCOHb 0.3 % (0.5-1.5); FHHb 11.7 % (0.0-5.0); FIO2 36.0 mmHg/%; FMetHb 0.3 % (0.0-1.5); FO2Hb 87.7 % (94.0-98.0); PATIENT TEMPERATURE 36.8; TOTAL HEMOGLOBIN 14.2 G/dl (12.0-16.0)
[2025-01-08 20:55] LABS: CHOL/HDL RATIO 6.7 (0.00-4.99); LDL CHOLESTEROL 103 MG/DL (50-100)
[2025-01-08] MEDS: ipratropium 0.5 MG/2.5ML nebule IH SCH (20:58)
[2025-01-08] MEDS: albuterol 2.5 MG/3 ML nebule NEB PRN (21:00)
[2025-01-08 21:01] VITALS: PULSE 79; RESP 22; O2SAT 91
[2025-01-08] MEDS: heparin 10,000 units/1 ML INJ IV PRN (21:04)
[2025-01-08 21:16] VITALS: PULSE 80; RESP 21
[2025-01-08 21:52] VITALS: PULSE 78; RESP 19; O2SAT 92
[2025-01-08] MEDS: CefTRIAXone/D5W-Rocephin 1gm 50 ML IV ONE (22:10)
[2025-01-08] MEDS: INSULIN LISPRO 100 UNIT/ML INSULN.PEN MULTI-DOSE SQ SCH (22:15)
[2025-01-08] MEDS: insulin glargine (Lantus) pen - multi-dose SQ SCH (22:20)
[2025-01-08 22:58] VITALS: BP 157/103; PULSE 78; RESP 18; TEMP 98.2; O2SAT 92
[2025-01-09] VITALS (37 sets, daily range): BP systolic 145–214; BP diastolic 87–114; PULSE 72–105; RESP 12–24; TEMP 96.3–97.8; O2SAT 89–97
[2025-01-09 00:13] LABS: LEUKOCYTE ESTERASE ,URINE SMALL (Neg); NITRITES, URINE NEGATIVE (Neg); OCCULT BLOOD,URINE LARGE (Neg); UA COLLECTION TYPE CLN CATCH MIDSTREAM
[2025-01-09 00:23] LABS: OSMOLALITY UA 429 MOSM/K (50-1400)
[2025-01-09 00:35] LABS: SQUAMOUS EPITHELIAL CELL,UR FEW /LPF (FEW)
[2025-01-09 00:40] LABS: CREATININE,URINE RANDOM 55.0 MG/DL; UA UREA RANDOM 577.0 MG/DL; URINE AMPHETAMINE SCREEN NEGATIVE (Neg); URINE BARBITUATE SCREEN NEGATIVE (Neg); URINE BENZODIAZEPINES SCREEN POSITIVE (Neg); URINE CANNABINOID SCREEN POSITIVE (Neg); URINE COCAINE SCREEN NEGATIVE (Neg); URINE METHADONE SCREEN NEGATIVE (Neg); URINE OPIATE SCREEN NEGATIVE (Neg); URINE PHENCYCLIDINE SCREEN NEGATIVE (Neg)
[2025-01-09] MEDS: hydrALAZINE 20mg/ml inj. IV PRN (02:38)
[2025-01-09] MEDS: MESSAGE TO NURSING IV ONE ×3 (04:02→17:09)
[2025-01-09] MEDS: aspirin 81mg, enteric-coated 1 TAB TABLET.DR PO SCH (08:55)
[2025-01-09] MEDS: metoprolol succinate 25mg (24-HOUR) SR. Tablet PO SCH ×2 (08:56→19:58)
[2025-01-09 10:27] LABS: MEAN PLATELET VOLUME 7.2 FL (7.4-10.4); RED CELL DISTRIBUTION WIDTH 15.0 % (11.5-14.5)
[2025-01-09 10:41] LABS: CREATININE 2.85 MG/DL (0.40-0.90); TOTAL CARBON DIOXIDE 19.4 MMOL/L (24-32); eCRCL 18 ML/MIN; eGFR 18 ML/MIN
[2025-01-09] MEDS: CefTRIAXone/D5W-Rocephin 1gm 50 ML IV SCH (12:11)
[2025-01-09] MEDS ORDERED: metoprolol tartrate 1mg/ml inj IV PRN (12:35)
[2025-01-09] MEDS: regadenoson 0.4mg/5ml syringe IV PRN (14:47)
[2025-01-09] MEDS: aminophylline 250mg/10ml inj. IV PRN (15:30)
--- NOTE | 2025-01-09 16:30 | RADIOLOGY REPORT ---
Reason for study/Clinical History: NSTEMI Comparison Study: None Myocardial Perfusion Study with SPECT Technique: The patient received an intravenous injection of 8.3 mCi of technetium-99m Sestamibi deani roberto at rest. After a short delay, SPECT tomographic images of the heart were obtained. The patient yayo roblero went to the stress lab where they received an intravenous Lexiscan utilizing standard protocol. 35.5 mCi of technetium-99m Sestamibi was injected intravenously immediately after the start of the infusion. Gated SPECT tomographic images of the heart were acquired and processed. Findings: Rotating planar images show no significant attenuation artifact. The left ventricular size is within normal limits. Mild reversible defect is present in the inferior wall suggestive of mild ischemia. Large portion of the inferior wall and lateral wall demonstrate decreased radiopharmaceutical uptake. The left ventricular ejection fraction is 40 %. (normal greater than 50%) Impression: Large portion of inferior wall and lateral wall demonstrate non reversible decreased radiopharmaceuti margarita activity suggestive of chronic infarcted tissue. There is a small area of reversibility in the in ferior wall suggesting mild ischemia. The left ventricular ejection fraction is 40%.
[2025-01-09] MEDS ORDERED: dextrose 50%-water 50ml dispensing syringe IV PRN ×2 (17:35)
[2025-01-09] MEDS ORDERED: glucagon, human recombinant 1mg kit SUBCUT PRN (17:35)
[2025-01-09] MEDS ORDERED: DEXTROSE 15 GM of carb/4 tabs (each vial/BOTTLE has 4 tablets) PO PRN ×2 (17:35)
[2025-01-09] MEDS: INSULIN LISPRO 100 UNIT/ML INSULN.PEN MULTI-DOSE SQ SCH ×2 (17:53→19:57)
--- NOTE | 2025-01-09 19:13 | CARDIOLOGY REPORT ---
APPROVED REPORT EXAM: Comprehensive 2D, Doppler, and color-flow Echocardiogram. Patient Location: [facility] B Heart Rate: 80's bpm Rhythm: SINUS Indications MYOCARDIAL INFARCTION PBNP (1605) TROP 728, 729, 485 MYCARDIAL INFARCTION 2024 COPD HYPERTENSION Porcelain Finish Sprayer: NONE Previous echo: 09-02-24 [facility] EF 65-70%, mLVH, MVA: 2.21, GRAD: 18/8, trTR, trMR 2D Dimensions RVDd 2.7 cm LA Diam4.0 cm IVSd 1.2 (0.7-1.1cm) LVDd 4.4 cm PWd 1.3 (0.7-1.1cm) IVSs 1.7 (0.8-1.2cm) LVDs 3.0 (2.5-4.0cm) PWs 1.9 (0.8-1.2cm) LVOT Diameter 2.05 (1.8-2.4cm) LVEF(%) 60.3 (>50%) IVC 27.74 mmFS (%) 31.9 % SV 52.7 ml CO 4.4 L/min M-Mode Dimensions Aortic Root 3.30 (2.2-3.7cm) Aortic Cusp Exc 2.06 (1.5-2.0cm) Aortic Valve AoV Peak John. 131.4 cm/s AoV VTI 20.5 cm AO Peak GR. 6.9 mmHg AO Mean GR. 4 mmHg LVOT VTI 19.08 cm LVOT Peak John. 117.7 cm/s ALMA(VTI)/BSA 3.08 cm2/m2 ALMA (VTI) 3.08 cm2 Mitral Valve MV E Velocity 103.2 cm/s MV Peak Gr. 13 mmHg MV DECEL TIME 184 ms MV A Velocity 145.2 cm/s MV Mean Gr. 5 mmHg MV PHT 56 ms E/A Ratio 0.7 MVA (PHT) 3.93 cm2 MV AMoq454.9 cm/sMV POten953.9 cm/s MVA VTI3.93 cm2MV VTI32.8 cm LEFT VENTRICLE Normal LV size and function. Mild concentric hypertrophy. Overall LVEF is 60-65%. RIGHT VENTRICLE RV is normal size and function. ATRIA The left atrium size is normal. AORTIC VALVE Trileaflet AV appears normal without stenosis. No insufficiency. MITRAL VALVE Mild MV annular calcification without stenosis. Trace regurgitation. TRICUSPID VALVE TV appears structurally normal with trace regurgitation. PULMONIC VALVE Normal PV without stenosis, physiologic insufficiency. GREAT VESSELS The aortic root is normal in size. PERICARDIUM Normal pericardium. No effusion. Other Information Study Quality: Adequate Conclusion Overall LVEF is 60-65%. RV is normal size and function. Trileaflet AV appears normal without stenosis. No insufficiency. Mild MV annular calcification without stenosis. Trace regurgitation. TV appears structurally normal with trace regurgitation. Normal PV without stenosis, physiologic insufficiency. Normal pericardium. No effusion.
--- NOTE | 2025-01-09 19:18 | CONSULTATION REPORT - RESIDENT ---
Consult Providers to CC Resident Creating Document: NORBERTRADHABROOK YOO History of Present Illness Reason for Admit\Complaint: NSTEMI History of Present Illness This is a 49-year-old female patient with a past medical history of coronary artery disease, type 2 diabetes mellitus, hypertension, asthma/COPD overlap, transferred from [facility] for COPD exacerbation and elevated troponins. Endorses shortness of breath for the past 2 days may not associated with orthopnea and PND. She endorses wheezing for the past 2 days. Complaining of the cough with increased sputum production and received albuterol and prednisone treatment at local ER her symptoms does not improve much and she went back to the ER in [facility] yesterday morning due to severe shortness of breath and chest tightness. She also had elevated troponins and was treated with aspirin and heparin drip. At [facility] her blood pressure was 200/100 mmHg and she was started on nitroglycerin drip which was discontinued in our ER. Patient denies chest pain, hemoptysis, palpitation, dizziness or lightheadedness. She is feeling nauseous but denies vomiting, abdominal pain or diarrhea, deviation of angle of mouth slurring of speech, weakness of limbs, seizures, abdominal pain, abdominal distention. We were consulted for NSTEMI . Allergies: Coded Allergies: No Known Allergies (Unverified , 01/08/25) Home Medications Home Medications Active Losartan Potassium 50 Mg Tablet 50 Mg PO DAILY 30 Days [hyDRALAzine tablet] 10 MG Tablet 20 Mg PO Q8H 30 Days Amlodipine Besylate 5 Mg Tablet 10 Mg PO DAILY 30 Days Labetalol Hcl 100 Mg Tablet 200 Mg PO BID 30 Days Rosuvastatin Calcium 40 Mg Tablet 1 Tab PO DAILY 30 Days Cardizem SR* (Diltiazem HCl) 60 Mg Cap.sr.12h 1 Capsule PO Q12H 30 Days Metformin HCl 1,000 Mg Tablet 1 Tab PO Q12H 30 Days Glucophage* (Metformin HCl) 1,000 Mg Tablet 1 Tab PO DAILY Proair Hfa (Albuterol Sulfate) 1 Puff Inh 2 Puffs IH Q4H PRN Reported Gabapentin 600 Mg Tablet 1 Tab PO Q8H 30 Days Past Medical History Past Medical History Coronary artery disease with PTCA with two stents in 2017 [place] Obstructive sleep apnea /COPD Chronic kidney disease Hyperlipidemia Hypertriglyceridemia Type 2 Diabetes mellitus Hypertension Metabolic syndrome Peripheral neuropathy Past Surgical History Surgical History Comment Two section PTCA Family History Family History: (DM Type 2) Diabetes mellitus type 2 FATHER brother Asthma brother FH: hypertension FATHER FATHER Past Social History Social History Comment Quit smoking five months back. Thirty-three pack years. Smokes marijuana daily Smokes methamphetamine. Exam Vitals: Vital Signs Date Time Temp Pulse Resp B/P (MAP) Pulse Ox O2 Delivery O2 Flow Rate FiO2 01/09/25 16:20 88 22 93 7.0 01/09/25 16:19 High Flow [place] 01/09/25 16:13 50 01/09/25 15:16 174/101 01/09/25 11:28 97.5 General: General: Awake and Alert, oriented time place person. In mild acute distress with oxygen flow rate of 7 L/minute. HEENT: Conjunctiva pink, Sclera clear, Mucus Membranes moist. Neck: Supple without masses and tenderness. Chest and respiratory system: Use of accessory muscles. Diminished air movement bilaterally . Bilateral diffuse wheezing is infrascapular and interscapular and suprascapular areas. No crepitations Cardiovascular system: Regular Rate and rhythm, normal S1 and S2 without murmur, rub or gallop. Gastrointestinal: Soft and non tender no organomegaly. No guarding, rigidity. [place] bowel sounds Extremities: No cyanosis,clubbing or edema. Skin: Warm and Dry. Diagnostic Data Last Recorded Lab Results: 01/09/25 1003 01/09/25 1003 Diagnostic Data: Laboratory Tests Test 01/08/25 19:18 01/09/25 16:11 Prothrombin Time 10.1 SECONDS (9.0-12.0) INR International Normalized Ratio 1.0 INR Activated Partial Thromboplast Time 33 SECONDS (22-32) H APTT (Heparin Protocol) 46 SECONDS (45-60) Coagulation Comments Additional Plan Prior history of coronary artery disease status post inferior wall [place] status post RCA stenting and PDA stenting. Patient's problem appeared to be more of uncontrolled diabetes, uncontrolled blood pressure and and hyperlipidemia with a triglyceride in 600 range. Troponin: 649 -> 557 -> 599 ([facility]) and 728 -> 729 -> 485, trended down BNP 1605 EKG: sinus rhythm, ST depression in leads I, aVL, V4-V6 Her nuclear medicine scans reviewed. It appears to be a large fixed defect with minimal ischemia. Probably related to her prior [place]. Option of further evaluation with coronary angiography versus continued medical therapy risks benefits alternative options discussed in detail with the patient in view of CKD with creatinine of 2.89. In View of above-mentioned multiple risk factors and potential for dialysis with the additional dye exposure patient prefers continued medical therapy. Recommend Tight control of diabetes with a hemoglobin A1c less than 7%, LDL less than 55 mg %, systolic blood pressure less than 130 mm of mercury. So recommend diet weight loss and exercise program. Consider SGLT2 inhibitors and GLP one agonists. Discontinue after 48 hours of heparin drip. Recommended to start and continue aspirin 81 mg, Plavix 75 mg, atorvastatin 80 mg, fenofibrate 145 mg p.o. daily, metoprolol 100 mg p.o. b.i.d. Recommended for tight high blood pressure, hydralazine 25 mg p.o. q.8h and hydralazine 15 mg IVif SBP is more than 150 mm of mercury q.4h p.r.n., amlodipine 10 mg LDL is 103. Triglycerides is 671. Triglyceride Strict hyperglycemic control and blood pressure control Continue nitro p.r.n. Evaluate for obstructive sleep apnea Patient seen and examined by Dr. Cece DAMON with resident physician. Acute hypoxemic respiratory failure Acute exacerbation of COPD and obstructive sleep apnea Community-acquired pneumonia [place] on chronic kidney disease Hyperlipidemia with hypertriglyceridemia Hypertensive emergency Hyperkalemia Uncontrolled type 2 diabetes mellitus Plan per hospitalist team and reading interventionist team Nuno Jon IM resident, PGY 2 Cardiology Patient seen and examined by Dr. Cece DAMON with resident physician. Importance of coronary risk factor modification, can continued follow up with PMD under primary heddler was emphasized to the patient. Sepsis Screening Reassessment Date: Jan 09, 2025 Date of Service: Jan 09, 2025 Billing Provider: DAVID LUNDBERG MD, VENKATESH, BROOK Jan 09, 2025 19:18 DAVID LUNDBERG MD Jan 09, 2025 19:37
--- NOTE | 2025-01-09 19:27 | PROGRESS NOTE ---
Daily Progress Note Providers to CC ~ Antibiotic Timeout Antibiotic Ordered?: Yes Subjective The patient denies chest pain however she still is rather short of breath initially the patient had a hyper tensive emergency patient's blood sugars are markedly escalating and are 493 I ordered 20 units of short-acting insulin and increase HS Lantus. m the patient has a Lexiscan stress test shows a large fixed defect in his small area of reversible ischemia I relayed this information and discussed the case with on-call nanotechnician Dr. Dubois Objective Vital Signs Date Time Temp Pulse Resp B/P (MAP) Pulse Ox O2 Delivery O2 Flow Rate FiO2 01/09/25 16:20 88 22 93 7.0 01/09/25 16:19 High Flow [place] 01/09/25 16:13 50 01/09/25 15:16 174/101 01/09/25 11:28 97.5 Result Diagram: 01/09/25 1003 01/09/25 1003 Gen. Minimal respiratory distress distress alert and oriented 4, obese Lungs clear to ascultation bilaterally, no wheezes rales or rhonchi appreciated Heart normal sinus rhythm no murmurs rubs or clicks noted Abdomen soft nontender bowel sounds are normoactive Lower extremities no clubbing cyanosis, nor edema appreciated bilaterally Coagulation Studies Laboratory Tests Test 01/08/25 19:18 01/09/25 16:11 Prothrombin Time 10.1 SECONDS (9.0-12.0) INR International Normalized Ratio 1.0 INR Activated Partial Thromboplast Time 33 SECONDS (22-32) H APTT (Heparin Protocol) 46 SECONDS (45-60) Coagulation Comments Problem\Assessment\Plan #Acute hypoxic respiratory failure likely multifactorial # community-acquired pneumonia- bacterial NOS # COPD exacerbation IV Solu-Medrol IV ceftriaxone Azithromycin Nebulizer treatments # NSTEMI versus type 2 mi Heparin drip EKG demonstrated ST-depression on leads one aVL and V4 through V6 On atorvastatin and metoprolol Lexiscan stress test showed a small area of reversible ischemia with a large nonreversible defect I discussed the case with on-call nanotechnician Dr. Dubois who will evaluate the patient in and reviewed the Lexiscan stress test # uncontrolled diabetes mellitus And a hyper and hypoglycemic protocol Added PC insulin And change to high dose sliding scale # MISAEL possibly secondary to renal tubular stasis Continue monitor daily CMP # hyperlipidemia On atorvastatin 80 mg Add fenofibrate # hypertensive emergency On amlodipine PRN hydralazine Metoprolol tartrate #Hyperkalemia Continue to monitor Date of Service: Jan 09, 2025 Billing Provider: LELO JOHNSON DO Common Visit Codes: [id number] INP/OBS CARE(HIGH) LELO JOHNSON DO Jan 09, 2025 19:27
[2025-01-09] MEDS: insulin glargine (Lantus) pen - multi-dose SQ SCH (22:39)
[2025-01-10] VITALS (19 sets, daily range): BP systolic 139–191; BP diastolic 76–101; PULSE 66–83; RESP 15–24; TEMP 97.4–98.3; O2SAT 90–97
[2025-01-10 05:55] LABS: MEAN PLATELET VOLUME 7.3 FL (7.4-10.4); RED CELL DISTRIBUTION WIDTH 15.0 % (11.5-14.5)
[2025-01-10 06:09] LABS: CREATININE 2.74 MG/DL (0.40-0.90); TOTAL CARBON DIOXIDE 19.3 MMOL/L (24-32); eCRCL 19 ML/MIN; eGFR 18 ML/MIN
[2025-01-10] MEDS: MESSAGE TO NURSING IV ONE ×2 (06:50→13:37)
--- NOTE | 2025-01-10 06:59 | ELECTROCARDIOGRAPH REPORT ---
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 JADA Lundberg Measurements Intervals [place] Rate: 68 P: 67 WI: 191 QRS: 74 QRSD: 104 T: 138 QT: 459 QTc: 489 Interpretive Statements Sinus rhythm Probable left atrial enlargement LVH with secondary repolarization abnormality Inferior infarct, old Electronically Signed On 01-10-2025 17:32:[address] JADA Lundberg Please click the below link to view image of tracing.
[2025-01-10] MEDS ORDERED: aspirin 81mg, enteric-coated 1 TAB TABLET.DR PO SCH (08:00)
[2025-01-10 08:39] LABS: LYMPHOCYTES % (MANUAL) 6.0 % (21-51); METAMYLEOCYTES% (MANUAL) 2.0 % (0-0); MONOCYTES % (MANUAL) 1.0 % (2-12); NEUTROPHILS % (MANUAL) 91.0 % (42-75)
[2025-01-10 08:40] LABS: PLATELET ESTIMATE NORMAL
[2025-01-10] MEDS: insulin glargine (Lantus) pen - multi-dose SQ ONE (09:12)
[2025-01-10] MEDS ORDERED: hydrALAZINE 20mg/ml inj. IV PRN (10:30)
[2025-01-10] MEDS: isosorbide mononitrate 30mg tab.SR.24H PO SCH (12:03)
--- NOTE | 2025-01-10 14:32 | CONSULTATION REPORT - RESIDENT ---
Consult Providers to CC Resident Creating Document: SHAUNA BYERS, RES CC: ROLAND CHEN III DO History of Present Illness Reason for Admit\Complaint: Type 2 [place],COPD exacerbration History of Present Illness HPI as This is a 49-year-old female patient with a past medical history of coronary artery disease, type 2 diabetes mellitus, hypertension, asthma/COPD overlap, transferred from [facility] for COPD exacerbation and elevated troponins. Two days ago the patient had shortness of breath, wheezing and increased sputum production, went to the local ER and was treated with albuterol and prednisone. Patient's symptoms worsened and she went back to the ER in [facility] this morning due to severe shortness of breath and chest tightness. She also had elevated troponins and was treated with aspirin and heparin drip. At presentation on [facility] her blood pressure was 200/100 mmHg and she was started on nitroglycerin drip which was discontinued in our ER. Patient denies chest pain, hemoptysis, palpitation, dizziness or lightheadedness. She was feeling nauseous but denies vomiting, abdominal pain or diarrhea. 01/10/25 Patient was seen and examined at her bedside with her father by her side. No complains Shortness of breath, chest pain. Patient stated she is feeling much better, Had a long conversation with the patient regarding uncontrolled DM and HTN and its implications on kidney. Patient told me she'd take better care of herself. Creatinine is improving. Allergies: Coded Allergies: No Known Allergies (Unverified , 01/08/25) Home Medications Home Medications Active Losartan Potassium 50 Mg Tablet 50 Mg PO DAILY 30 Days [hyDRALAzine tablet] 10 MG Tablet 20 Mg PO Q8H 30 Days Amlodipine Besylate 5 Mg Tablet 10 Mg PO DAILY 30 Days Labetalol Hcl 100 Mg Tablet 200 Mg PO BID 30 Days Rosuvastatin Calcium 40 Mg Tablet 1 Tab PO DAILY 30 Days Cardizem SR* (Diltiazem HCl) 60 Mg Cap.sr.12h 1 Capsule PO Q12H 30 Days Metformin HCl 1,000 Mg Tablet 1 Tab PO Q12H 30 Days Glucophage* (Metformin HCl) 1,000 Mg Tablet 1 Tab PO DAILY Proair Hfa (Albuterol Sulfate) 1 Puff Inh 2 Puffs IH Q4H PRN Reported Gabapentin 600 Mg Tablet 1 Tab PO Q8H 30 Days Past Medical History Past Medical History Coronary artery disease - STEMI in 2017, 2 stents placed COPD/asthma overlap Hypertension Type 2 diabetes mellitus complicated with peripheral neuropathy Metabolic syndrome Past Surgical History Surgical History Comment Two c-sections Family History Family History: (DM Type 2) Diabetes mellitus type 2 FATHER brother Asthma brother FH: hypertension FATHER FATHER Past Social History Social History Comment Patient quit smoking five months ago. She smoked one pack of cigarettes daily since she was 16-year-old. She smokes marijuana daily, denies alcohol or other illicit drug use. Exam Vitals: Vital Signs Date Time Temp Pulse Resp B/P (MAP) Pulse Ox O2 Delivery O2 Flow Rate FiO2 01/10/25 11:44 72 20 Room Air 0.0 01/10/25 11:37 92 21 01/10/25 11:09 98.0 175/86 (115) General: General: Awake and alert, no respiratory distress,on room air HEENT: Conjunctiva pink, Sclera clear, Mucus membranes moist. Neck: Supple without masses and tenderness. Resp: On room air. Diminished air movement bilaterally with diffuse wheezing. Heart: Regular rate and rhythm, normal S1 and S2 without murmur, rub or gallop. Abdomen: Soft and non tender no organomegaly Extremities: No cyanosis,clubbing or edema. Skin: Warm and Dry. Diagnostic Data Last Recorded Lab Results: 01/10/25 0518 01/10/25 0518 Diagnostic Data: Laboratory Tests Test 01/08/25 19:18 01/10/25 12:18 Prothrombin Time 10.1 SECONDS (9.0-12.0) INR International Normalized Ratio 1.0 INR Activated Partial Thromboplast Time 33 SECONDS (22-32) H APTT (Heparin Protocol) 68 SECONDS (45-60) H Coagulation Comments Additional Plan MISAEL on CKD stage 4 Intrinsic lnzap-PzVr-3.5% Baseline creatinine appears to be 2.5 Creatinine was initially at 3.36, downtrending and is currently at 2.74 GFR-18 -pt stated that her pcp has told her multiple times regarding increased creatinine with respect to her prev labs Poorly controlled diabetes mellitus,might require dialysis in the future. -mild wheezing on auscultation,no pedal edema noted Plan -not comfortable being fluids at this point of time,will review again tomorrow -ordered renal USG,anti streptolysin,complement C3 and C4 pending -continue to monitor creatinine -strict I&O monitoring -ordered PTH Electrolyte abnormalities Hypertonic Hyponatremia Hyperkalemia Pt sodium is at 130(permissive hyponatremia for now) Had one reading of elevated K+,second lab results came back to normal -ordered sodium q6h Community-acquired pneumonia versus COPD exacerbation Acute hypoxemic respiratory failure, resolved Chest CT: Bandlike areas of consolidation in the upper lobes and lingula with associated atelectasis and bronchiectatic changes. Small ground-glass opacities in the medial lower lobes as well. -very mild wheezing present B/L basilar region WBC elevated at 17.1 C-reactive protein 1.04, procalcitonin 0.07, lactic acid 2 -manage as per primary care team Prior history of coronary artery disease s/p inferior wall [place] status post RCA stenting and PDA stenting in 2017 Troponin: 649 -> 557 -> 599 ([facility]) and 728 -> 729 -> 485, trended down BNP 1605.LDL is 103. Triglycerides is 671. EKG: sinus rhythm, ST depression in leads I, aVL, V4-V6 [place] scan:a large fixed defect with minimal ischemia. -pt is currently on heparin drip on board Manage as per cardiology team Uncontrolled type 2 diabetes mellitus complicated with peripheral neuropathy Metabolic syndrome A1c 9.9 -on hypoglycemia/hyperglycemia protocol -manage per primary care team Uncontrolled hypertension -d/c losartan in view of MISAEL Pt is currently on Hydralazine 25mg,amlodipine 10mg ,metoprolol succinate 100mg -Would recommend to add ACEi/ARBS despite of the chances of increasing potassium,for which LOKELMA could be initiated. Mixed hyperlipidemia Cholesterol 236, LDL 103, HDL 35, triglycerides 671 -continue atorvastatin 80 mg Positive cannabinoids on Utox Code Status: Full code DVT prophylaxis: Heparin drip Analgesia/sedation: Morphine/[place] Line/tube: PIV GI prophylaxis: None Prognosis: Guarded Disposition: We will continue to monitor the patient closely Shauna Byers Internal medicine resident Date of Service: Jan 10, 2025 Billing Provider: ROLAND CHEN III, JAHNAVI, RES Jan 10, 2025 14:32
[2025-01-10 15:22] LABS: OSMOLALITY UA 444 MOSM/K (50-1400)
--- NOTE | 2025-01-10 15:47 | PROGRESS NOTE- Residence ---
Progress Note - Resident Providers to CC Resident Creating Document: JYOTHI BEEBEBROOK ROCKWELL ~ Antibiotic Timeout Antibiotic Ordered?: No Subjective Seen and examined the patient at bedside. 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 Blood pressures are running in 190s. Objective Vital Signs Date Time Temp Pulse Resp B/P (MAP) Pulse Ox O2 Delivery O2 Flow Rate FiO2 01/10/25 11:44 72 20 Room Air 0.0 01/10/25 11:37 92 21 01/10/25 11:09 98.0 175/86 (115) Result Diagram: 01/10/2551701/10/25517 General: Awake and Alert, oriented time place person. In mild acute distress with oxygen flow rate of 7 L/minute. HEENT: Conjunctiva pink, Sclera clear, Mucus Membranes moist. Neck: Supple without masses and tenderness. Chest and respiratory system: Use of accessory muscles. Diminished air movement bilaterally . Occasional wheezing is present. No crepitations Cardiovascular system: Regular Rate and rhythm, normal S1 and S2 without murmur, rub or gallop. Gastrointestinal: Soft and non tender no organomegaly. No guarding, rigidity. [place] bowel sounds Extremities: No cyanosis,clubbing or edema. Skin: Warm and Dry Coagulation Studies Laboratory Tests Test 01/08/25 19:18 01/10/25 12:18 Prothrombin Time 10.1 SECONDS (9.0-12.0) INR International Normalized Ratio 1.0 INR Activated Partial Thromboplast Time 33 SECONDS (22-32) H APTT (Heparin Protocol) 68 SECONDS (45-60) H Coagulation Comments Advance Care Planning Advanced Care plannin - 30 Minutes Plan Plan Prior history of coronary artery disease status post inferior wall [place] status post RCA stenting and PDA stenting. Patient's problem appeared to be more of uncontrolled diabetes, uncontrolled blood pressure and and hyperlipidemia with a triglyceride in 600 range. Troponin: 649 -> 557 -> 599 ([place]) and 728 -> 729 -> 485, trended down BNP 1605.LDL is 103. Triglycerides is 671. EKG: sinus rhythm, ST depression in leads I, aVL, V4-V6 Her nuclear medicine scans reviewed. It appears to be a large fixed defect with minimal ischemia. Probably related to her prior [place]. Option of further evaluation with coronary angiography versus continued medical therapy risks benefits alternative options discussed in detail with the patient in view of CKD with creatinine of 2.89. In View of above-mentioned multiple risk factors and potential for dialysis with the additional dye exposure patient prefers continued medical therapy. Recommend Tight control of diabetes with a hemoglobin A1c less than 7%, LDL less than 55 mg %, systolic blood pressure less than 130 mm of mercury. So recommend diet weight loss and exercise program. Consider SGLT2 inhibitors and GLP one agonists. Discontinue heparin drip after 48 hours. Recommended to start and continue aspirin 81 mg, Plavix 75 mg, atorvastatin 80 mg, fenofibrate 145 mg p.o. daily, metoprolol 100 mg p.o. b.i.d., Imdur 60 mg p.o. daily. Discontinue nitro patch/nitro sublingual if any from tomorrow Recommended for tight high blood pressure with hydralazine 25 mg p.o. q.8h and hydralazine 15 mg IV if SBP is more than 150 mm of mercury q.4h p.r.n., amlodipine 10 mg LDL is 103. Triglycerides is 671. Strict Triglyceride , hyperglycemic control and blood pressure control Patient seen and examined by Dr. Cece DAMON with resident physician. Acute hypoxemic respiratory failure Acute exacerbation of COPD and obstructive sleep apnea Community-acquired pneumonia [place] on chronic kidney disease Hyperlipidemia with hypertriglyceridemia Hypertensive emergency Hyponatremia Hyperkalemia, resolved Uncontrolled type 2 diabetes mellitus Evaluate for obstructive sleep apnea Plan per hospitalist team and housing officer team Nuno Beebe IM resident, PGY 2 Cardiology Patient seen and examined by Dr. Cece DAMON with resident physician. Patient educated about good control of blood pressure diabetes and cholesterol. Follow up with PMD and primary corporate coordinator. Date of Service: Jan 10, 2025 Billing Provider: DAVID LUNDBERG MD, VENKATESH, BROOK Jan 10, 2025 15:47 DAVID LUNDBERG MD Jan 10, 2025 17:18
--- NOTE | 2025-01-10 16:18 | RADIOLOGY REPORT ---
INDICATION: MISAEL on CKD TECHNIQUE: Multiple real-time sonographic images of the kidneys and bladder were obtained. COMPARISON: CT CT ABDOMEN PELVIS on DOS: 09/20/24, US ULTRASOUND OF ABDOMEN on DOS: 06/10/24 FINDINGS: RIGHT kidney measures 8.6 cm in length. No hydronephrosis. LEFT kidney measures 10.3 cm in length. No hydronephrosis. No large intraluminal masses are seen in the bladder. IMPRESSION: 1. Unremarkable examination.
[2025-01-10] MEDS: metoprolol succinate 25mg (24-HOUR) SR. Tablet PO SCH (19:02)
--- NOTE | 2025-01-10 19:08 | PROGRESS NOTE ---
Daily Progress Note Providers to CC ~ Antibiotic Timeout Antibiotic Ordered?: Yes Subjective The patient is off of oxygen today- IM stopping IV Solu-Medrol and starting prednisone in the morning I anticipate this will help with her severely uncontrolled diabetes- the heparin drip is to be discontinued this evening and Dr. Dubois started the patient on Plavix and aspirin daily Objective Vital Signs Date Time Temp Pulse Resp B/P (MAP) Pulse Ox O2 Delivery O2 Flow Rate FiO2 01/10/25 16:29 80 01/10/25 15:47 20 Room Air 0.0 01/10/25 15:41 94 21 01/10/25 15:25 97.4 139/76 (97) Result Diagram: 01/10/25 0518 01/10/25 1745 Gen. No acute distress alert and oriented 4, obese Lungs clear to ascultation bilaterally, no wheezes rales or rhonchi appreciated Heart normal sinus rhythm no murmurs rubs or clicks noted Abdomen soft nontender bowel sounds are normoactive Lower extremities no clubbing cyanosis, nor edema appreciated bilaterally Coagulation Studies Laboratory Tests Test 01/08/25 19:18 01/10/25 12:18 Prothrombin Time 10.1 SECONDS (9.0-12.0) INR International Normalized Ratio 1.0 INR Activated Partial Thromboplast Time 33 SECONDS (22-32) H APTT (Heparin Protocol) 68 SECONDS (45-60) H Coagulation Comments Problem\Assessment\Plan #Acute hypoxic respiratory failure likely multifactorial # community-acquired pneumonia- bacterial NOS # COPD exacerbation IV Solu-Medrol IV ceftriaxone Azithromycin Nebulizer treatments 01/10 resolved DC Solu-Medrol Start prednisone 20 mg in the a.m. # NSTEMI versus type 2 mi Heparin drip EKG demonstrated ST-depression on leads one aVL and V4 through V6 On atorvastatin and metoprolol Lexiscan stress test showed a small area of reversible ischemia with a large nonreversible defect I discussed the case with on-call wind farm electrical systems designer Dr. Dubois who will evaluate the patient in and reviewed the Lexiscan stress test 01/10 heparin drip is to be discontinued this evening and Dr. Dubois started the patient on aspirin and Plavix # uncontrolled diabetes mellitus And a hyper and hypoglycemic protocol Added PC insulin And change to high dose sliding scale 01/10 severely uncontrolled anticipate improvement with the DC Solu-Medrol Increase PC insulin to 15 units Lantus is at 30 units HS # MISAEL possibly secondary to renal tubular stasis Continue monitor daily CMP 01/[address] 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 Q 8 hours #Hyperkalemia Resolved Continue to monitor Date of Service: Jan 10, 2025 Billing Provider: LELO JOHNSON DO Common Visit Codes: [id number] INP/OBS CARE(HIGH) LELO JOHNSON DO Jan 10, 2025 19:08
[2025-01-11] VITALS (7 sets, daily range): BP systolic 140–162; BP diastolic 85–98; PULSE 59–77; RESP 16–20; TEMP 97.8–98.3; O2SAT 95–98
[2025-01-11 06:40] LABS: MEAN PLATELET VOLUME 7.3 FL (7.4-10.4); RED CELL DISTRIBUTION WIDTH 14.9 % (11.5-14.5)
[2025-01-11 06:52] LABS: CREATININE 3.11 MG/DL (0.40-0.90); TOTAL CARBON DIOXIDE 19.0 MMOL/L (24-32); eCRCL 17 ML/MIN; eGFR 16 ML/MIN
[2025-01-11] MEDS ORDERED: INSULIN LISPRO 100 UNIT/ML INSULN.PEN MULTI-DOSE SQ SCH (09:00)
[2025-01-11 09:55] LABS: BANDS% (MANUAL) 1.0 % (0-10); LYMPHOCYTES % (MANUAL) 10.0 % (21-51); METAMYLEOCYTES% (MANUAL) 2.0 % (0-0); MONOCYTES % (MANUAL) 9.0 % (2-12); NEUTROPHILS % (MANUAL) 78.0 % (42-75); PLATELET ESTIMATE INCREASED
[2025-01-11 11:12] LABS: COMPLEMENT C3, SERUM 178 mg/dL (82-167); COMPLEMENT C4, SERUM 23 mg/dL (12-38)
--- NOTE | 2025-01-11 11:52 | PROGRESS NOTE- Residence ---
Progress Note - Resident Providers to CC Resident Creating Document: JYOTHI BEEBEBROOK ROCKWELL ~ Antibiotic Timeout Antibiotic Ordered?: Yes Subjective Seen and examined the patient at bedside. 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 Blood pressure is improved in 130s. Objective Vital Signs Date Time Temp Pulse Resp B/P (MAP) Pulse Ox O2 Delivery O2 Flow Rate FiO2 01/11/25 11:30 77 20 Room Air 0.0 01/11/25 11:30 95 21 01/11/25 02:00 98.3 143/98 (113) Result Diagram: 01/11/25 0609 01/11/25 0609 General: Awake and Alert, oriented time place person. Not in acute distress.. HEENT: Conjunctiva pink, Sclera clear, Mucus Membranes moist. Neck: Supple without masses and tenderness. Chest and respiratory system: Use of accessory muscles. Diminished air movement bilaterally . Occasional wheezing is present. No crepitations Cardiovascular system: Regular Rate and rhythm, normal S1 and S2 without murmur, rub or gallop. Gastrointestinal: Soft and non tender no organomegaly. No guarding, rigidity. [place] bowel sounds Extremities: No cyanosis,clubbing or edema. Skin: Warm and Dry Coagulation Studies Laboratory Tests Test 01/08/25 19:18 01/10/25 12:18 Prothrombin Time 10.1 SECONDS (9.0-12.0) INR International Normalized Ratio 1.0 INR Activated Partial Thromboplast Time 33 SECONDS (22-32) H APTT (Heparin Protocol) 68 SECONDS (45-60) H Coagulation Comments Advance Care Planning Advanced Care plannin - 30 Minutes Plan Plan Prior history of coronary artery disease status post inferior wall [place] status post RCA stenting and PDA stenting. Patient's problem appeared to be more of uncontrolled diabetes, uncontrolled blood pressure and and hyperlipidemia with a triglyceride in 600 range. Troponin: 649 -> 557 -> 599 ([facility]) and 728 -> 729 -> 485, trended down BNP 1605.LDL is 103. Triglycerides is 671. EKG: sinus rhythm, ST depression in leads I, aVL, V4-V6 Her nuclear medicine scans reviewed. It appears to be a large fixed defect with minimal ischemia. Probably related to her prior [place]. Option of further evaluation with coronary angiography versus continued medical therapy risks benefits alternative options discussed in detail with the patient in view of CKD with creatinine of 2.89. In View of above-mentioned multiple risk factors and potential for dialysis with the additional dye exposure patient prefers continued medical therapy. Recommend Tight control of diabetes with a hemoglobin A1c less than 7%, LDL less than 55 mg %, systolic blood pressure less than 130 mm of mercury. So recommend diet weight loss and exercise program. Consider SGLT2 inhibitors and GLP one agonists. Discontinue heparin drip after 48 hours. Recommended to start and continue aspirin 81 mg, Plavix 75 mg, atorvastatin 80 mg, fenofibrate 145 mg p.o. daily, metoprolol 100 mg p.o. b.i.d., Imdur 60 mg p.o. daily. Discontinue nitro patch/nitro sublingual if any from tomorrow Recommended for tight high blood pressure with hydralazine 25 mg p.o. q.8h and hydralazine 15 mg IV if SBP is more than 150 mm of mercury q.4h p.r.n., amlodipine 10 mg LDL is 103. Triglycerides is 671. Strict Triglyceride , hyperglycemic control and blood pressure control Patient seen and examined by Dr. Cece DAMON with resident physician. Acute hypoxemic respiratory failure Acute exacerbation of COPD and obstructive sleep apnea Community-acquired pneumonia [place] on chronic kidney disease Hyperlipidemia with hypertriglyceridemia Hypertensive emergency Hyponatremia Hyperkalemia, resolved Uncontrolled type 2 diabetes mellitus Evaluate for obstructive sleep apnea Plan per hospitalist team and miller kiln dried salt team Nuno COX resident, PGY 2 Cardiology Patient educated about good control of blood pressure diabetes and cholesterol. Follow up with PMD and primary electrical manager. Patient seen and examined by Dr. JULIO with resident physician. Patient to follow up with primary physician and also find a electrical manager as an outpatient. Date of Service: Jan 11, 2025 Billing Provider: DAVID LUNDBERG MD, VENKATESH, RES Jan 11, 2025 11:52 DAVID LUNDBERG MD Jan 11, 2025 19:05
--- NOTE | 2025-01-11 19:52 | DISCHARGE SUMMARY ---
Discharge Summary Providers to CC Left AMA today ~ Discharge Summary Assessment Acute hypoxemic respiratory failure Coronary artery disease, acute non-STEMI Acute exacerbation of COPD and obstructive sleep apnea Community-acquired pneumonia, mixed lucrecia Gram-positive Gram-negative Cosme on chronic kidney disease, secondary to vasomotor nephropathy Hyperlipidemia with hypertriglyceridemia Hypertensive emergency Hyponatremia Hyperkalemia, Uncontrolled type 2 diabetes mellitus Admission Diagnosis: COPD exacerbation, type 2 NM Admission Diagnosis Comment: Acute hypoxemic respiratory failure Coronary artery disease, acute non-STEMI Acute exacerbation of COPD and obstructive sleep apnea Community-acquired pneumonia, mixed lucrecia Gram-positive Gram-negative Cosme on chronic kidney disease, secondary to vasomotor nephropathy Hyperlipidemia with hypertriglyceridemia Hypertensive emergency Hyponatremia Hyperkalemia, Uncontrolled type 2 diabetes mellitus Hospital Course DATE OF ADMISSION: January 08, 2025 DATE OF DISCHARGE: January 11, 2025 Discharge Diagnosis\Comment: Acute hypoxemic respiratory failure Coronary artery disease, acute non-STEMI Acute exacerbation of COPD and obstructive sleep apnea Community-acquired pneumonia, mixed lucrecia Gram-positive Gram-negative Cosme on chronic kidney disease, secondary to vasomotor nephropathy Hyperlipidemia with hypertriglyceridemia Hypertensive emergency Hyponatremia Hyperkalemia, Uncontrolled type 2 diabetes mellitus Operations\Procedures: Non Consultants: Cementer Machine Joiner Complications: None Condition on DC: Stable Discharge Summary: This is a 49-year-old female patient with a past medical history of coronary artery disease, type 2 diabetes mellitus, hypertension, asthma/COPD overlap, transferred from [facility] for COPD exacerbation and elevated troponins. Endorses shortness of breath for the past 2 days may not associated with orthopnea and PND. She endorses wheezing for the past 2 days. Complaining of the cough with increased sputum production and received albuterol and pred nisone treatment at local ER her symptoms does not improve much and she went back to the ER in [facility] yesterday morning due to severe shortness of breath and chest tightness. She also had elevated troponins and was treated with aspirin and heparin drip. At [facility] her blood pressure was 200/100 mmHg and she was started on nitroglycerin drip which was discontinued in our ER. Patient denies chest pain, hemoptysis, palpitation, dizziness or lightheadedness. She is feeling nauseous but denies vomiting, abdominal pain or diarrhea, deviation of angle of mouth slurring of speech, weakness of limbs, seizures, abdominal pain, abdominal distention. After admission patient was extensively evaluated treated including by fondant puff maker and greige mender, she f eels better today, and left AMA, patient notified and explained by RN to continue inpatient treatment, risk of severe complications and explained if patient leaves AMA, but patient elected to leave AMA. Unfortunately she left AMA before I had opportunity to do physical exam. *Problems/Diagnosis: (1) NSTEMI (non-ST elevated myocardial infarction) Status: Acute (2) COPD with acute exacerbation Status: Acute (3) Acute kidney injury Status: Acute Total Time Spent on D/C: > 30 Minutes Date of Service: Jan 11, 2025 Billing Provider: DEANDRE NEGRETE MD Common Visit Codes: 59503-CSK/OBS DISCH DAY >30min DEANDRE NEGRETE MD Jan 11, 2025 19:52
[2025-01-12 11:23] LABS: COMPLEMENT C3, SERUM 161 mg/dL (82-167); COMPLEMENT C4, SERUM 20 mg/dL (12-38)
[2025-01-12 13:13] LABS: ANTINUCLEAR ANTIBODIES Negative (Negative)
== END 2025-01-11 14:41 | disposition left against medical advice (07) | DRG 137 ==
LOC: ER 18:47 → ED HOLD 19:47 → PCU 3S 22:46
PROVIDERS: ADMIT Surgery Surgical Critical Care; ATTEND Family Medicine
PROC: 5A0935A Assistance with Respiratory Ventilation, Less than 24 Consecutive Hours, High Flow/Velocity Cannula (ICD-10-PCS; 2025-01-08)
PROC: 4A02XM4 Measurement of Cardiac Total Activity, External Approach (ICD-10-PCS; principal; 2025-01-09)
PROC: 3E033HZ Introduction of Radioactive Substance into Peripheral Vein, Percutaneous Approach (ICD-10-PCS; 2025-01-09)
PROC: 5A0935A Assistance with Respiratory Ventilation, Less than 24 Consecutive Hours, High Flow/Velocity Cannula (ICD-10-PCS; 2025-01-09)
DX: J15.69 Pneumonia due to other Gram-negative bacteria (principal); N17.0 Acute kidney failure with tubular necrosis; J96.01 Acute respiratory failure with hypoxia; J44.0 Chronic obstructive pulmonary disease with (acute) lower respiratory infection; I21.4 Non-ST elevation (NSTEMI) myocardial infarction; J15.9 Unspecified bacterial pneumonia; E87.1 Hypo-osmolality and hyponatremia; N18.4 Chronic kidney disease, stage 4 (severe); I16.1 Hypertensive emergency; E11.22 Type 2 diabetes mellitus with diabetic chronic kidney disease; E11.42 Type 2 diabetes mellitus with diabetic polyneuropathy; I12.9 Hypertensive chronic kidney disease with stage 1 through stage 4 chronic kidney disease, or unspecified chronic kidney disease; J44.1 Chronic obstructive pulmonary disease with (acute) exacerbation; E87.5 Hyperkalemia; I25.10 Atherosclerotic heart disease of native coronary artery without angina pectoris; E78.00 Pure hypercholesterolemia, unspecified; E78.1 Pure hyperglyceridemia; Z53.21 Procedure and treatment not carried out due to patient leaving prior to being seen by health care provider; G47.33 Obstructive sleep apnea (adult) (pediatric); Z79.84 Long term (current) use of oral hypoglycemic drugs; Z79.899 Other long term (current) drug therapy; Z98.891 History of uterine scar from previous surgery
CPT/HCPCS: 36415; 36600; 71250; 76770; 78452; 80048; 80053; 80061; 80305; 81001; 81003; 82570; 82803; 82948; 83036; 83605; 83735; 83880; 83930; 83935; 83970; 84133; 84145; 84295; 84300; 84484; 84540; 85007; 85018; 85025; 85610; 85651; 85730; 86038; 86060; 86140; 86160; 86256; 87040; 87081; 87088; 93005; 93017; 93306; 94640; 94760; 96365; 99285; A4615; A4620; A9500; G0378; J0280; J0360; J0456; J0696; J1644; J1815; J2785; J2919; J3490; J7040; J7512

== ENCOUNTER 2025-03-31 18:11 | Emergency (ER) | payer MEDICAID ==
[~2025-03-31] VITALS: Ht 154.9 cm; Wt 106.6 kg
--- NOTE | 2025-03-31 18:23 | Physician Documentation ---
History of Present Illness ~ Chief Complaint: Hypertension Stated Complaint: HIGH BP/ COLD SWEATS Time Seen by MD: 19:24 Primary Medical Doctor: Hali Marques HPI This is a 49-year-old female who presents to the emergency department for onset of what she describes as chills and cold sweats. She reports a history of significant hypertension, and has been out of a couple of her medications since yesterday. She denies chest pain or shortness of breath. No fevers. Present hospitalization 01/08/2025 for community-acquired pneumonia, non-STEMI, exacerbation congestive heart failure. Patient does also have history of hyperlipidemia, COPD, obstructive sleep apnea, poorly controlled type 2 diabetes. Per external med hx, patient is on losartan 50 mg daily along with Diltiazem and Hydralazine. She has run out of losartan but still has some Diltiazem and hydralazine. Medication Reconciliation Allergies: Coded Allergies: No Known Allergies (Unverified , 03/31/25) Scheduled Amlodipine Besylate (Amlodipine Besylate), 10 MG PO DAILY Diltiazem Hcl SR* (Cardizem SR*), 1 CAPSULE PO Q12H Gabapentin (Gabapentin), 1 TAB PO Q8H, (Reported) Labetalol Hcl (Labetalol Hcl), 200 MG PO BID Losartan Potassium (Losartan Potassium), 50 MG PO DAILY Metformin HCl (Metformin HCl), 1 TAB PO Q12H Metformin Hcl* (Glucophage*), 1 TAB PO DAILY Rosuvastatin Calcium (Rosuvastatin Calcium), 1 TAB PO DAILY [hyDRALAzine tablet], 20 MG PO Q8H Scheduled PRN Albuterol Sulfate (Proair Hfa), 2 PUFFS IH Q4H PRN for SOB or wheezing Past Medical History Past Medical History: Coronary Artery Disease, High Cholesterol, Hypertension, Myocardial Infarction, Asthma, COPD, Diabetes Past Surgical History: Patient History: (DM Type 2) Diabetes mellitus type 2 FATHER brother Asthma brother FH: hypertension FATHER FATHER Alcohol Use: None Drug Use: marijuana, methamphetamine Lives with: Family Lives In: Home Occupation: unemployed Review of Systems ROS As stated above in the HPI, otherwise all systems are reviewed and negative. Physical Exam Vital Signs: Temperature: 98.1, Source: Oral, Heart Rate: 84, Respiratory Rate: 16, BP: 247/129, Pulse Oximetry: 97, Weight: 106.600 Oxygen Flow Rate: 0 Physical Exam General: Alert, no apparent distress. Neck: Full range of motion. Respiratory: Lungs clear, no respiratory distress. Chest: No accessory muscle use. Cardiovascular: Regular rate and rhythm, no murmurs. Gastrointestinal: Soft, nontender, nondistended. Bowels sounds present. Extremities: Normal range of motion, no deformity. Neurologic: Oriented x4. Psychiatric: Normal mood and affect. Skin: Normal color, warm and dry. No edema, no ecchymosis. Progress Progress Note 2104: Offered admission, patient declined. Continues to deny CP or dyspnea. SBP has improved to 209. Patient reports home BPs 170's to low 200's at home. PCP appt Thursday. She will be discharged with strict return instructions. Results/Orders Results/Orders Orders - JANUARY LOPEZ BEAD BUILDER Losartan Tablet (Cozaar Tablet) (03/31/25 18:25) Monitor (03/31/25 18:26) Lorazepam Tablet (Ativan Tablet) (03/31/25 20:20) Completed Orders - JANUARY LOPEZ BEAD BUILDER Cbc/Diff (03/31/25 18:26) MG (03/31/25 18:26) Electrocardiogram (03/31/25 18:26) PBNP (03/31/25 18:26) BMP (03/31/25 18:26) Hs Troponin I W Calculations (03/31/25 18:26) Hs Troponin I W Calculations (03/31/25 20:26) Medications Received in ER Medications (Trade) Dose Ordered Sig/Ashley Route PRN Reason Start Time Stop Time Status Last Admin Dose Admin (Cozaar tablet) 50 mg ONCE PO 03/31/25 18:25 03/31/25 19:48 50 MG (Ativan tablet) 0.5 mg ONCE PRN PO for anxiety/agitation 03/31/25 20:20 03/31/25 20:24 0.5 MG Vital Signs 03/31/25 03/31/25 03/31/25 03/31/25 18:17 19:33 19:36 19:48 Temp 98.1 Pulse 84 82 90 Resp 16 16 16 B/P (MAP) 247/129 218/118 (151) Pulse Ox 97 97 O2 Flow Rate 0 03/31/25 03/31/25 03/31/2525 20:02 20:17 20:24 20:46 Pulse 75 76 80 Resp 16 16 18 18 B/P (MAP) 178/107 (130) 194/119 (144) 226/113 (150) Pulse Ox 98 98 97 O2 Flow Rate 0 03/31/25 21:03 Pulse 71 Resp 18 B/P (MAP) 226/118 (154) Pulse Ox 98 Laboratory Tests Test 03/31/25 18:47 03/31/25 18:53 03/31/25 20:27 White Blood Count 13.8 H Red Blood Count 5.36 Hemoglobin 14.8 Hematocrit 44.1 Mean Corpuscular Volume 82.3 Mean Corpuscular Hemoglobin 27.6 Mean Corpuscular Hemoglobin Concent 33.5 Red Cell Distribution Width 15.0 H Platelet Count 485 H Mean Platelet Volume 6.9 L Neutrophils (%) (Auto) 69.7 Lymphocytes (%) (Auto) 17.3 L Monocytes (%) (Auto) 9.1 Eosinophils (%) (Auto) 2.7 Basophils (%) (Auto) 1.2 H Neutrophils # (Auto) 9.6 H Lymphocytes # (Auto) 2.4 Monocytes # (Auto) 1.3 H Eosinophils # (Auto) 0.4 Basophils # (Auto) 0.2 CBC Comment Sodium Level 135 Potassium Level 4.7 Chloride Level 101 Carbon Dioxide Level 24.9 Anion Gap 9 Blood Urea Nitrogen 53 H Creatinine 2.87 H Estimated GFR/1.73 m2 18 BUN/Creatinine Ratio 18.5 Glucose Level 250 H Calcium Level 9.3 Magnesium Level 2.1 Troponin I High Sensitivity 81 *H 80 *H Pro-B-Type Natriuretic Peptide 5400 H Albumin 3.6 Chemistry Comments Troponin I High Sens Percent Delta 1 Troponin I Hi Sens Absolute Change -1 EKG/XRAY/CT/US/VASC/MRI EKG : Additional Comment 1857 EKG interpreted to show sinus rhythm rate of 81 with T wave abnormalities in lateral leads. QTC 470 ms. Reviewed previous EKG from December visit, which showed essentially the same findings. Medical Decision Making Additional information obtaine: old records, family Findings Extensive review of prior records. Differential Dx:Considerations: Include CHF, Include HTN, essential, Include HTN, accelerated, Include HTN, malignant, Include HTN, encephalopathy, Include medical noncompliance, Include medication withdrawal, Include pulmonary edema, Include renal failure, Include -induced Additional Information Initial troponin 81 with repeat at two hours 80. EKG reviewed and compared to previous hospitalization, essentially the same. Patient denied CP or dyspnea. She was offered admission but declined. Long discussion about the importance of followup with PCP and service car operator as well as returning if worse. Most Likely Diagnoses: Medication non-adherencerelated uncontrolled chronic hypertension: Abrupt discontinuation of antihypertensives ( losartan) in a patient with congestive heart failure can precipitate severe rebound hypertension and sympathetic symptoms such as cold sweats and chills. The [place] [employer] highlights medication non-adherence as a major contributor to poor blood pressure control and acute hypertensive presentations.[1] Hypertensive urgency: Markedly elevated systolic blood pressure (>240 mmHg) without acute target organ damage is consistent with hypertensive urgency. The [place] [employer] and [place] [employer] recommend that these patients be managed with reinstitution of oral antihypertensive therapy and close monitoring, rather than rapid parenteral BP lowering.[2] Sympathetic surge: Symptoms such as cold sweats and chills may reflect autonomic activation due to pain, anxiety, or withdrawal of antihypertensive agents, holland ecially those with central sympatholytic effects (e.g., labetalol).[2] Volume overload / acute heart failure exacerbation: Discontinuation of antihypertensives may worsen heart failure, leading to increased afterload and possible volume overload, which can present with sympathetic symptoms and dyspnea.[3] Secondary endocrine hypertension: Although less likely, pheochromocytoma or other secondary causes (e.g., hyperthyroidism) should be considered if symptoms are paroxysmal or accompanied by other suggestive features.[2] Most Important Not to Miss Diagnoses: Hypertensive emergency with acute target-organ damage: Rule out acute heart failure, pulmonary edema, stroke, aortic dissection, or acute kidney injury. This requires focused history, physical exam, ECG, troponin, renal function, and neurologic assessment. The [place] [employer] and [place] [employer] recommend immediate BP reduction with IV agents only if target organ damage is present.[2] Aortic dissection: Sudden severe hypertension with sympathetic symptoms and heart failure history warrants exclusion of aortic dissection. Assess for chest/back pain, pulse deficits, and obtain urgent imaging if suspected.[4] Intracranial hemorrhage or ischemic stroke: Acute neurologic symptoms or altered mental status require rapid neuroimaging to exclude stroke or hemorrhage.[5] Departure Time of Disposition: 21:06 Disposition: HOME / SELF CARE / HOMELESS Impression: Primary Impression: Accelerated hypertension Condition: Stable Discharge Instructions: Hypertension, Adult Additional Instructions: Please return for chest pain, shortness of breath, or any other concerns that your symptoms are worsening. Resume your losartan tomorrow as planned once obtained from the pharmacy and continue taking your diltiazem and hydralazine as prescribed. Followup with your primary care provider and service car operator. Referrals: NO PRIMARY CARE PROVIDER (PCP) Education Educated: Patient, Family Educated regarding: diagnosis, treatment, prognosis, need for follow up Signature Scribe Signature: x Attestation: The note accurately reflects work and decisions made by me.January Hutchison NP 03/31/25 18:28 JANUARY LOPEZ NP Mar 31, 2025 18:23
[2025-03-31 18:59] LABS: MEAN PLATELET VOLUME 6.9 FL (7.4-10.4); RED CELL DISTRIBUTION WIDTH 15.0 % (11.5-14.5)
--- NOTE | 2025-03-31 18:59 | ELECTROCARDIOGRAPH REPORT ---
[facility] Test Date: 2025-03-31 Test Time: 18:57:02 Pat Name: SIM BISHOP Department: [facility] Patient ID: [id number] Room: Gender: F Senior Counsel Commercial: : 1975 Requested By: GUSTAVO LOPEZ Order Number: [id number] Reading MD: Dr. Cale Richter Measurements Intervals [place] Rate: 81 P: 29 MO: 201 QRS: 23 QRSD: 101 T: 113 QT: 405 QTc: 470 Interpretive Statements Sinus rhythm Probable left ventricular hypertrophy Anterior Q waves, possibly due to LVH Abnormal T, consider ischemia, lateral leads Baseline wander in lead(s) V3 Electronically Signed On 04-04-2025 20:44:[address] Cale Richter Please click the below link to view image of tracing.
[2025-03-31 19:26] LABS: CREATININE 2.87 MG/DL (0.40-0.90); PRO BRAIN NATRIURETIC PEPTIDE 5400 PG/ML (0-125); TOTAL CARBON DIOXIDE 24.9 MMOL/L (24-32); eCRCL 18 ML/MIN; eGFR 18 ML/MIN
[2025-03-31 21:15] VITALS: BP 208/107; PULSE 70; RESP 16; TEMP 98.1; O2SAT 99
== END 2025-03-31 21:21 | disposition home or self-care (01) ==
LOC: ER 18:12
DX: I11.0 Hypertensive heart disease with heart failure (principal); I50.9 Heart failure, unspecified; E11.9 Type 2 diabetes mellitus without complications; I25.10 Atherosclerotic heart disease of native coronary artery without angina pectoris; I25.2 Old myocardial infarction; E78.00 Pure hypercholesterolemia, unspecified; J44.9 Chronic obstructive pulmonary disease, unspecified; F12.90 Cannabis use, unspecified, uncomplicated; F15.90 Other stimulant use, unspecified, uncomplicated; Z56.0 Unemployment, unspecified
CPT/HCPCS: 36415; 80048; 83735; 83880; 84484; 85025; 93005; 99285